=== PATIENT | female | born 1940 | race Caucasian/White ===

== ENCOUNTER → 2021-01-12 | Outpatient (CLI) | payer MEDICARE ==
--- NOTE | 2021-01-12 13:06 | Diagnostic Imaging Report ---
EXAMINATION: Right temporomandibular joint. INDICATION: TMJ pain. TECHNIQUE/COMPARISON: Open and closed mouth views in the lateral projection were obtained. There are no prior studies available for comparison. FINDINGS: There is no fracture or acute bony abnormality evident. The mandibular condyle appears to show normal excursion with opening of the mouth. No other abnormality is identified. IMPRESSION: 1. There is no sign of an acute bony abnormality and the temporomandibular joint seems well maintained. 2. If clinical concern regarding an underlying abnormality of the TMJ persists, then MRI would be recommended. Dictated by: Dictated on workstation # [id number]
== END ==
LOC: RAD 11:15
PROVIDERS: ATTEND Family Medicine
DX: M26.621 Arthralgia of right temporomandibular joint (principal)
CPT/HCPCS: 70328

== ENCOUNTER 2021-03-30 20:18 | Inpatient (IN) | payer MEDICARE ==
[~2021-03-30] VITALS: Ht 167 cm; Wt 87.4 kg
[2021-03-30] MEDS ORDERED: ONDANSETRON 4 MG (ZOFRAN) ORAL DISSOLVE TAB ONE (20:41)
[2021-03-30 20:43] LABS: BILIRUBIN,URINE NEGATIVE (NEGATIVE); CLARITY,URINE CLOUDY; COLOR,URINE YELLOW; GLUCOSE, URINE (UA) TRACE (NEGATIVE); KETONES,URINE NEGATIVE (NEGATIVE); LEUKOCYTE ESTERASE ,URINE 3+ (NEGATIVE); NITRITE,URINE POSITIVE (NEGATIVE); PROTEIN,URINE 2+ (NEGATIVE)
[2021-03-30 20:45] LABS: BACTERIA,URINE MODERATE /HPF; WBC,URINE TNTC /HPF
[2021-03-30] MEDS ORDERED: GLIM2TAB4 PO (20:50)
[2021-03-30] MEDS ORDERED: CYCL10TA9 PO (20:50)
[2021-03-30] MEDS ORDERED: LEVO50TA6 PO (20:50)
[2021-03-30] MEDS ORDERED: HYDR25TA4 PO (20:50)
[2021-03-30] MEDS ORDERED: OMEP20CA18 PO (20:50)
[2021-03-30] MEDS ORDERED: SIMV20TA26 PO (20:50)
[2021-03-30] MEDS ORDERED: NS IV 1000 ML 1,000 ML IV SCH (21:15)
[2021-03-30] MEDS ORDERED: PIPERACILLIN SODIUM/TAZOBACTAM 4.5 GM in NS (IVPB) 100 ML IV ONE (21:15)
--- NOTE | 2021-03-30 21:31 | ED General ---
General Chief Complaint: - Reproductive Stated Complaint: BACK PAIN/FEVER/COUGH/POSS UTI/CHILLS Nursing Triage Note: c/o lower abdominal pain, pain with urination, lower back pain, persistant cough, fever since monday. Source of Information: Patient Exam Limitations: No Limitations History of Present Illness Date Seen by Provider: Mar 30, 2021 Time Seen by Provider: 20:35 Initial Comments This is 80-year-old woman presents to the emergency room accompanied by her daughter with complaints of nausea, vomiting, lower abdominal pain, increased cough, and fever up to 101 with symptoms starting on Monday, March 28. She is noted to be tachycardic and hypoxic upon assessment with oxygen saturation as low as 89% on room air with good waveform. She reports having had cough chronically since having COVID-19 in July, but the cough has worsened in the last several days. She is actively vomiting on arrival. She reports a history of diverticulitis as well. She reports suprapubic abdominal pain but she is not tender to palpation. She moved here in December to live with her daughter and does not yet have a primary care provider. She believes she has been vaccinated for both COVID-19 and influenza in the last year. Allergies and Home Medications Allergies Coded Allergies: erythromycin base (Verified Allergy, Unknown, 03/30/21) Patient Home Medication List Home Medication List Reviewed: Yes Cyclobenzaprine HCl (Cyclobenzaprine HCl) 10 Mg Tablet, (Reported) Entered as Reported by: PEYMAN PASCAL on 03/30/212049 Last Action: New Order Glimepiride (Glimepiride) 2 Mg Tablet, (Reported) Entered as Reported by: PEYMAN PASCAL on 03/30/212049 Last Action: New Order Hydrochlorothiazide (Hydrochlorothiazide) 25 Mg Tablet, (Reported) Entered as Reported by: PEYMAN PASCAL on 03/30/212049 Last Action: New Order Levothyroxine Sodium (Levothyroxine Sodium) 50 Mcg Tablet, (Reported) Entered as Reported by: PEYMAN PASCAL on 03/30/212049 Last Action: New Order Omeprazole (Omeprazole) 20 Mg Capsule., (Reported) Entered as Reported by: PEYMAN PASCAL on 03/30/212049 Last Action: New Order Simvastatin (Simvastatin) 20 Mg Tablet, (Reported) Entered as Reported by: PEYMAN PASCAL on 03/30/212049 Last Action: New Order Review of Systems Review of Systems Constitutional: see HPI EENTM: no symptoms reported Respiratory: see HPI Cardiovascular: see HPI Gastrointestinal: see HPI Genitourinary: see HPI : No Musculoskeletal: back pain Skin: no symptoms reported Psychiatric/Neurological: No Symptoms Reported Hematologic/Lymphatic: No Symptoms Reported Immunological/Allergic: no symptoms reported Past Lhkdmov-Jndpsj-Tbhzrl Hx Patient Social History Tobacco Use?: No Smoking Status: Former Smoker Use of E-Cig and/or Vaping dev: No Substance use?: No Alcohol Use?: No Pt feels they are or have been: No Past Medical History Surgery/Hospitalization HX: eye, niesha, back, niddm, htn, hypothyoid, gerd, high cholesterol, diverticulosis. Surgeries: Yes Eye Surgery, Gallbladder Respiratory: Yes (COVID-28 July 2020) Cardiac: Yes High Cholesterol, Hypertension Neurological: No : No Reproductive Disorders: No Genitourinary: No Gastrointestinal: Yes Diverticulosis (With history of diverticulitis) Musculoskeletal: No Endocrine: Yes Hypothyroidsim, Diabetes, Non-Insulin dep HEENT: No Cancer: No Psychosocial: No Integumentary: No Physical Exam-Suspected Sepsis Physical Exam Vital Signs Vital Signs - First Documented 03/30/21 03/30/21 20:28 20:55 Temp 37.2 Pulse 120 Resp 20 B/P (MAP) 138/77 (97) Pulse Ox 93 O2 Delivery Room Air O2 Flow Rate 3.00 Capillary Refill : Less Than 3 Seconds Blood Pressure Mean: 97 Height, Weight, BMI Height: '" Weight: lbs. oz. kg; 25.00 BMI Method: General Appearance: WD/WN, Moderate Distress (Vomiting) HEENT: PERRL/EOMI, Normal ENT Inspection, Other (Oropharynx quite dry) Neck: Normal Inspection Respiratory: Lungs Clear, No Accessory Muscle Use, No Respiratory Distress, Decreased Breath Sounds Cardiovascular: No Edema, No Murmur, Normal Peripheral Pulses, Tachycardia Gastrointestinal: Normal Bowel Sounds, Non Tender, Soft; No Distended; Other (Vomiting during assessment) Extremity: Normal Inspection, No Pedal Edema Neurologic/Psychiatric: Alert, Oriented x3, No Motor/Sensory Deficits, Normal Mood/Affect, microbiology manager II-XII Norm as Tested Skin: normal color, warm/dry Focused Exam Lactate Level 03/30/21 21:40: Lactic Acid Level 1.35 Lactic Acid Level Progress/Results/Core Measures Suspected Sepsis SIRS Temperature: Pulse: 120 Respiratory Rate: 20 Laboratory Tests 03/30/21 21:40: White Blood Count 9.1 03/31/21 04:40: White Blood Count 7.7 Blood Pressure 138 /77 Mean: 97 03/30/21 21:40: Lactic Acid Level 1.35 Laboratory Tests 03/30/21 21:40: Creatinine 1.34H, INR Comment 1.0, Platelet Count 146, Total Bilirubin 1.4H 03/31/21 04:40: Creatinine 1.31H, Platelet Count 108L Results/Orders Lab Results Laboratory Tests Test 03/30/21 20:36 03/30/21 20:54 03/30/21 21:40 03/31/21 04:40 Range/Units Urine Color YELLOW Urine Clarity CLOUDY Urine pH 6.0 5-9 Urine Specific Blandon 1.015 L 1.016-1.022 Urine Protein 2+ H NEGATIVE Urine Glucose (UA) TRACE H NEGATIVE Urine Ketones NEGATIVE NEGATIVE Urine Nitrite POSITIVE H NEGATIVE Urine Bilirubin NEGATIVE NEGATIVE Urine Urobilinogen 1.0 < = 1.0 MG/DL Urine Leukocyte Esterase 3+ H NEGATIVE Urine RBC (Auto) 3+ H NEGATIVE Urine RBC 5-10 H /HPF Urine WBC TNTC H /HPF Urine Crystals NONE /LPF Urine Bacteria MODERATE H /HPF Urine Casts NONE /LPF Urine Mucus LARGE H /LPF Urine Culture Indicated YES Influenza Type A (RT-PCR) Not Detected Not Detecte Influenza Type B (RT-PCR) Not Detected Not Detecte SARS-CoV-2 RNA (RT-PCR) Not Detected Not Detecte White Blood Count 9.1 7.7 4.3-11.0 10^3/uL Red Blood Count 4.50 3.81 3.80-5.11 10^6/uL Hemoglobin 13.5 11.4 L 11.5-16.0 g/dL Hematocrit 41 36 35-52 % Mean Corpuscular Volume 91 93 80-99 fL Mean Corpuscular Hemoglobin 30 30 25-34 pg Mean Corpuscular Hemoglobin Concent 33 32 32-36 g/dL Red Cell Distribution Width 13.8 14.0 10.0-14.5 % Platelet Count 146 108 L 130-400 10^3/uL Mean Platelet Volume 10.5 10.4 9.0-12.2 fL Immature Granulocyte % (Auto) 0 0 % Neutrophils (%) (Auto) 85 H 83 H 42-75 % Lymphocytes (%) (Auto) 6 L 8 L 12-44 % Monocytes (%) (Auto) 8 8 0-12 % Eosinophils (%) (Auto) 0 0 0-10 % Basophils (%) (Auto) 0 0 0-10 % Neutrophils # (Auto) 7.8 6.4 1.8-7.8 10^3/uL Lymphocytes # (Auto) 0.5 L 0.6 L 1.0-4.0 10^3/uL Monocytes # (Auto) 0.8 0.6 0.0-1.0 10^3/uL Eosinophils # (Auto) 0.0 0.0 0.0-0.3 10^3/uL Basophils # (Auto) 0.0 0.0 0.0-0.1 10^3/uL Immature Granulocyte # (Auto) 0.0 0.0 0.0-0.1 10^3/uL Neutrophils % (Manual) 85 % Lymphocytes % (Manual) 7 % Monocytes % (Manual) 8 % Blood Morphology Comment NORMAL Prothrombin Time 13.7 12.2-14.7 SEC INR Comment 1.0 0.8-1.4 Activated Partial Thromboplast Time 31 24-35 SEC D-Dimer 0.81 H 0.00-0.49 UG/ML Sodium Level 138 135 135-145 MMOL/L Potassium Level 3.2 L 3.9 3.6-5.0 MMOL/L Chloride Level 97 L 100 98-107 MMOL/L Carbon Dioxide Level 27 27 21-32 MMOL/L Anion Gap 14 8 5-14 MMOL/L Blood Urea Nitrogen 36 H 30 H 7-18 MG/DL Creatinine 1.34 H 1.31 H 0.60-1.30 MG/DL Estimat Glomerular Filtration Rate 38 39 BUN/Creatinine Ratio 27 23 Glucose Level 114 H 204 H 70-105 MG/DL Lactic Acid Level 1.35 0.50-2.00 MMOL/L Calcium Level 10.2 H 9.0 8.5-10.1 MG/DL Corrected Calcium 10.2 H 8.5-10.1 MG/DL Total Bilirubin 1.4 H 0.1-1.0 MG/DL Aspartate Amino Transf (AST/SGOT) 60 H 5-34 U/L Alanine Aminotransferase (ALT/SGPT) 51 0-55 U/L Alkaline Phosphatase 92 40-136 U/L C-Reactive Protein High Sensitivity 17.00 H 18.98 H 0.00-0.50 MG/DL Total Protein 7.6 6.4-8.2 GM/DL Albumin 4.0 3.2-4.5 GM/DL Procalcitonin 0.79 H 4.65 H <0.10 NG/ML Thyroid Stimulating Hormone (TSH) 2.43 0.35-4.94 UIU/ML Free Thyroxine 0.95 0.70-1.48 NG/DL Percent Immature Platelet Fraction 3.2 0.0-7.6 % Test 03/31/21 06:22 Range/Units Glucometer 123 H 70-110 MG/DL My Orders Orders - CHARLES COHEN MD Ua Culture If Indicated (03/30/21 20:35) Ondansetron Oral Dissolve Tab (Zofran (03/30/21 20:41) Urine Culture (03/30/21 20:36) Cbc With Automated Diff (03/30/21 21:10) Comprehensive Metabolic Panel (03/30/21 21:10) Blood Culture (03/30/21 21:10) Sputum Culture (03/30/21 21:10) Protime With Inr (03/30/21 21:10) Partial Thromboplastin Time (03/30/21 21:10) Chest 1 View, Ap/Pa Only (03/30/21 21:10) Ed Iv/Invasive Line Start (03/30/21 21:10) Ed Iv/Invasive Line Start (03/30/21 21:10) Vital Signs Adult Sepsis Patie Q15M (03/30/21 21:10) O2 (03/30/21 21:10) Remove Rings In Anticipation O (03/30/21 21:10) Lactic Acid Analyzer (03/30/21 21:10) Ns Iv 1000 Ml (Sodium Chloride 0.9%) (03/30/21 21:15) Piperacillin Sodium/Tazobactam (Zosyn Vi (03/30/21 21:15) Covid 19 Inhouse Test (03/30/21 21:10) Influenza A And B By Pcr (03/30/21 21:10) Hs C Reactive Protein (03/30/21 21:35) Procalcitonin (Pct) (03/30/21 21:35) Thyroid Stimulating Hormone (03/30/21 21:35) Free T4 (Free Thyroxine) (03/30/21 21:35) Manual Differential (03/30/21 21:40) D5 1/2 Ns W/Kcl 40 Meq/L (Dextrose 5%/0. (03/30/21 22:30) D5 1/2 Ns W/Kcl 40 Meq/L (Dextrose 5%/0. (03/30/21 22:16) Fibrin Degradation Products (03/30/21 21:40) Enoxaparin Injection (Lovenox Injection) (03/30/21 22:45) Medications Given in ED Current Medications Medications Dose Ordered Sig/Becca Route Start Time Stop Time Status Last Admin Dose Admin Ondansetron HCl 4 mg STK-MED ONCE .ROUTE 03/30/21 20:41 03/30/21 20:44 DC 03/30/21 20:42 4 MG Piperacillin Sod/ Tazobactam Sod 4.5 gm/Sodium Chloride 100 ml @ 200 mls/hr ONCE ONCE IV 03/30/21 21:15 03/30/21 21:44 DC 03/30/21 21:46 200 MLS/HR Potassium Chloride/Dextrose/ Sod Cl 1,000 ml @ 150 mls/hr Q6H40M ONCE IV 03/30/21 22:30 03/31/21 00:16 DC 03/30/21 22:40 150 MLS/HR Vital Signs/I&O 03/30/21 03/30/21 03/30/21 03/30/21 20:28 20:55 23:07 23:33 Temp 37.2 36.9 37.0 Pulse 120 108 101 Resp 20 18 20 B/P (MAP) 138/77 (97) 112/68 122/57 (78) Pulse Ox 93 98 94 O2 Delivery Room Air Nasal Cannula Nasal Cannula Nasal Cannula O2 Flow Rate 3.00 3.00 3.00 03/31/21 04:05 Temp 37.0 Pulse 89 Resp 25 B/P (MAP) 101/52 (68) Pulse Ox 97 O2 Delivery Nasal Cannula O2 Flow Rate 3.00 03/31/21 00:00 Intake Total 100 ml Balance 100 ml Capillary Refill : Less Than 3 Seconds Blood Pressure Mean: 97 Progress Note #1: Time: 21:31 Progress Note Patient was treated with sublingual Zofran during assessment. Septic work-up is underway including influenza and Covid swabs. Urinary tract infection was identified on urinalysis. Work-up is still pending but antibiotic therapy is being initiated with Zosyn at this time. Hypoxia was noted with oxygen saturation as low as 89% on room air with a good waveform. She responded well to nasal cannula at 3 L/min. Progress Note #2: Time: 22:41 Progress Note UTI was the only identified source of infection. We will continue treating with Zosyn for now. No reason for her persistent hypoxia was identified. Therefore D-dimer was added to the work-up and was mildly elevated. GFR will not allow for CT angiogram at this time. We will therefore give her a single dose of Lovenox tonight and allow the hospitalist team to reassess in the morning. Patient denies any contraindications to Lovenox use. I discussed CODE STATUS with the patient and her daughter. She requests to be full code at this time. Potassium will be replaced in the IV fluids. Patient states she would like a referral to a primary care provider upon discharge. Diagnostic Imaging Diagonstic Imaging: Xray Plain Films/CT/US/NM/MRI: chest Comments Chest x-ray viewed by me and report reviewed. See report below: NAME: JAQUELINE LOPEZ [facility] REC#: [id number] PT STATUS: REG ER : 1940 PHYSICIAN: CHARLES COHEN MD ADMIT DATE: 03/30/21/ER Signed Date of Exam:03/30/21 CHEST 1 VIEW, AP/PA ONLY INDICATION: Abdominal pain with cough and fever AP view of the chest is obtained. There is no previous study for comparison. There is elevation of the right hemidiaphragm. Heart size and pulmonary vascularity are within normal limits. There is no pneumothorax or consolidation. There are surgical findings in the lower cervical spine with degenerative findings seen in both acromioclavicular joints. IMPRESSION: Elevated right hemidiaphragm without evidence of acute abnormality. If older studies are available, comparison would be useful to document stability. Dictated by: Dictated on workstation # [id number] Dict: 03/30/212135 Trans: 03/30/212153 [facility] [id number] Interpreted by: JEAN PEÑA MD Electronically signed by: JEAN PEÑA MD 03/30/212153 Departure Communication (Admissions) Time/Spoke to Admitting Phy: 22:25 Dr. Yost Impression Primary Impression: Sepsis Qualified Codes: A41.9 - Sepsis, unspecified organism Additional Impressions: Hypoxia Urinary tract infection Qualified Codes: N39.0 - Urinary tract infection, site not specified Nausea and vomiting Qualified Codes: R11.2 - Nausea with vomiting, unspecified Elevated d-dimer Disposition: ADMITTED INPATIENT Condition: Improved Admissions Decision to Admit Reason: Admit from ER (General) Decision to Admit/Date: Mar 30, 2021 Time/Decision to Admit Time: 21:10 Departure-Patient Inst. Referrals: NO,LOCAL PHYSICIAN (PCP) Primary Care Physician CHARLES COHEN MD Mar 30, 2021 21:31
--- NOTE | 2021-03-30 21:45 | Diagnostic Imaging Report ---
INDICATION: Abdominal pain with cough and fever AP view of the chest is obtained. There is no previous study for comparison. There is elevation of the right hemidiaphragm. Heart size and pulmonary vascularity are within normal limits. There is no pneumothorax or consolidation. There are surgical findings in the lower cervical spine with degenerative findings seen in both acromioclavicular joints. IMPRESSION: Elevated right hemidiaphragm without evidence of acute abnormality. If older studies are available, comparison would be useful to document stability. Dictated by: Dictated on workstation # [id number]
[2021-03-30 21:55] LABS: BASOPHILS % (AUTO) 0 % (0-10); EOSINOPHILS % (AUTO) 0 % (0-10); HEMATOCRIT 41 % (35-52); HEMOGLOBIN 13.5 g/dL (11.5-16.0); LYMPHOCYTES # (AUTO) 0.5 10^3/uL (1.0-4.0); LYMPHOCYTES % (AUTO) 6 % (12-44); MEAN CORPUSCULAR HEMOGLOBIN 30 pg (25-34); MEAN CORPUSCULAR HGB CONC 33 g/dL (32-36); MEAN CORPUSCULAR VOLUME 91 fL (80-99); MEAN PLATELET VOLUME 10.5 fL (9.0-12.2); MONOCYTES # (AUTO) 0.8 10^3/uL (0.0-1.0); MONOCYTES % (AUTO) 8 % (0-12); NEUTROPHILS # (AUTO) 7.8 10^3/uL (1.8-7.8); NEUTROPHILS % (AUTO) 85 % (42-75); PLATELET COUNT 146 10^3/uL (130-400); WHITE BLOOD COUNT 9.1 10^3/uL (4.3-11.0)
[2021-03-30 22:03] LABS: POTASSIUM 3.2 MMOL/L (3.6-5.0)
[2021-03-30 22:04] LABS: CALCIUM 10.2 MG/DL (8.5-10.1); PROTHROMBIN TIME PATIENT 13.7 SEC (12.2-14.7)
[2021-03-30 22:05] LABS: TOTAL PROTEIN 7.6 GM/DL (6.4-8.2)
[2021-03-30 22:07] LABS: BILIRUBIN,TOTAL 1.4 MG/DL (0.1-1.0)
[2021-03-30 22:09] LABS: CREATININE SERUM 1.34 MG/DL (0.60-1.30)
[2021-03-30] MEDS ORDERED: D5 1/2 NS W/KCL 40 MEQ/L 1,000 ML IV ONE ×2 (22:16→22:30)
[2021-03-30 22:19] LABS: LYMPHOCYTES % (MANUAL) 7 %; MONOCYTES % (MANUAL) 8 %; NEUTROPHILS % (MANUAL) 85 %; RBC MORPH NORMAL
[2021-03-30 22:33] LABS: FIBRIN DEGRADATION PRODUCTS 0.81 UG/ML (0.00-0.49); FREE T4 (FREE THYROXINE) 0.95 NG/DL (0.70-1.48)
[2021-03-30] MEDS ORDERED: ENOXAPARIN 80 MG/0.8 ML (LOVENOX) SYR SC ONE (22:45)
[2021-03-30 23:33] VITALS: BP 122/57
[2021-03-31] VITALS (7 sets, daily range): BP systolic 99–132; BP diastolic 50–65
[2021-03-31] MEDS ORDERED: diphenhydrAMINE 25 MG TAB (BENADRYL) PO PRN (00:15)
[2021-03-31] MEDS ORDERED: ACETAMINOPHEN 650 MG SUPP (TYLENOL) PR PRN (00:15)
[2021-03-31] MEDS ORDERED: FAMOTIDINE 20MG/2ML IV (PEPCID) IV PRN (00:15)
[2021-03-31] MEDS ORDERED: ONDANSETRON 4 MG/2 ML (SDV) Z0FRAN IV PRN (00:15)
[2021-03-31] MEDS: D5 1/2 NS W/KCL 40 MEQ/L 1,000 ML IV SCH ×3 (00:21→07:46)
[2021-03-31 04:47] LABS: BASOPHILS % (AUTO) 0 % (0-10); EOSINOPHILS % (AUTO) 0 % (0-10); HEMATOCRIT 36 % (35-52); MEAN CORPUSCULAR VOLUME 93 fL (80-99); MONOCYTES # (AUTO) 0.6 10^3/uL (0.0-1.0)
[2021-03-31 04:49] LABS: HEMOGLOBIN 11.4 g/dL (11.5-16.0); LYMPHOCYTES # (AUTO) 0.6 10^3/uL (1.0-4.0); LYMPHOCYTES % (AUTO) 8 % (12-44); MEAN CORPUSCULAR HEMOGLOBIN 30 pg (25-34); MEAN CORPUSCULAR HGB CONC 32 g/dL (32-36); MEAN PLATELET VOLUME 10.4 fL (9.0-12.2); MONOCYTES % (AUTO) 8 % (0-12); NEUTROPHILS # (AUTO) 6.4 10^3/uL (1.8-7.8); NEUTROPHILS % (AUTO) 83 % (42-75); PLATELET COUNT 108 10^3/uL (130-400); WHITE BLOOD COUNT 7.7 10^3/uL (4.3-11.0)
[2021-03-31 05:03] LABS: POTASSIUM 3.9 MMOL/L (3.6-5.0)
[2021-03-31 05:08] LABS: CREATININE SERUM 1.31 MG/DL (0.60-1.30)
[2021-03-31] MEDS: inSUlin ASPART (NovoLOG) 1 UNIT/0.01 ML (CHARGE PER UNIT) SC SCH ×4 (06:23→21:22)
[2021-03-31] MEDS: ACETAMINOPHEN 500 MG TAB (TYLENOL) PO PRN ×2 (06:26→12:42)
[2021-03-31] MEDS: PIPERACILLIN/TAZO 4.5 GM/NS 100 ML IV SCH ×6 (07:46→21:54)
[2021-03-31] MEDS: FAMOTIDINE 20 MG (PEPCID) TABLET PO SCH (08:04)
[2021-03-31] MEDS ORDERED: MELA1TAB20 PO (08:10)
[2021-03-31] MEDS ORDERED: ASCO100T6 PO (08:10)
[2021-03-31] MEDS ORDERED: IBUP-2473 PO (10:03)
[2021-03-31] MEDS ORDERED: [UNRECOGNIZED DRUG - CODE] PO (10:03)
[2021-03-31] MEDS ORDERED: MELA5TAB14 PO (10:03)
--- NOTE | 2021-03-31 14:07 | History & Physical-Hospitalist ---
History of Present Illness HPI/Chief Complaint Patient is 80-year-old female with a past medical history of emw-cfnlpbr-kriogksrh diabetes, hypothyroidism, hyperlipidemia, hypertension who presented to the emergency department due to fevers, nausea, vomiting, abdominal pain. She states that her symptoms started roughly 4 days ago when she noticed her urine was cloudy. She then developed suprapubic tenderness. She has had previous symptoms like this with urinary tract infections. She had a temperature of 101 and worsening abdominal pain prompting her to seek evaluation in the emergency department. She was found to meet sepsis criteria due to uri nary tract infection and was started on Zosyn and admitted for further management. This morning she states she is feeling much better and has had no further nausea or vomiting. She is requesting to advance her diet as well. Source: patient Date Seen 03/31/21 Time Seen by a Provider: 08:45 Attending Physician Eduard Yost MD PCP No,Local Physician Referring Physician Date of Admission Mar 30, 2021 at 22:40 Home Medications & Allergies Home Medications Reviewed patient Home Medication Reconciliation performed by pharmacy medication reconciliations industrial machine system technician and/or nursing. Patients Allergies have been reviewed. Allergies Allergies Coded Allergies erythromycin base (Verified Allergy, Unknown, 03/30/21) Past Wlyzrgw-Gbjisj-Vdawag Hx Patient Social History Employed/Student: retired Tobacco Use?: No Tobacco type used: Cigarettes Smoking Status: Former Smoker Smokeless Tobacco Frequency: Never a User Use of E-Cig and/or Vaping dev: No Substance use?: No Alcohol Use?: No Pt feels they are or have been: No Immunizations Up To Date First/Initial COVID19 Vaccinat: JANUARY 2021 Second COVID19 Vaccination Allen: JANUARY 2021 Tetanus Booster (TDap): Unknown Current Status status: No Advance Directives: No Communicates: Verbally Primary Language: Slovak Preferred Spoken Language: Slovak Is interpretation needed?: No Sensory deficits: Vision impairment Implanted or Applied Medical D: None Past Medical History Surgeries: Eye Surgery, Gallbladder High Cholesterol, Hypertension Diverticulosis (With history of diverticulitis) Hypothyroidsim, Diabetes, Non-Insulin dep Family Medical History Reviewed Nursing Family Hx No Pertinent Family Hx daughter alive Review of Systems Constitutional: chills, fever, malaise EENTM: no symptoms reported Respiratory: cough (chronic since COVID) Cardiovascular: No chest pain, No edema, No palpitations Gastrointestinal: abdominal pain; No constipation, No diarrhea; nausea, vomiting Genitourinary: no symptoms reported Musculoskeletal: no symptoms reported Skin: no symptoms reported Psychiatric/Neurological: No Symptoms Reported Physical Exam Physical Exam Vital Signs Vital Signs - First Documented 03/30/21 03/30/21 20:28 20:55 Temp 37.2 Pulse 120 Resp 20 B/P (MAP) 138/77 (97) Pulse Ox 93 O2 Delivery Room Air O2 Flow Rate 3.00 Capillary Refill : Less Than 3 Seconds Height, Weight, BMI Height: '" Weight: lbs. oz. kg; 31.33 BMI Method: General Appearance: No Apparent Distress, WD/WN HEENT: PERRL/EOMI, Moist Mucous Membranes Neck: Normal Inspection, Supple Respiratory: Lungs Clear, No Accessory Muscle Use, No Respiratory Distress Cardiovascular: Regular Rate, Rhythm, No JVD, No Murmur Gastrointestinal: Normal Bowel Sounds, Non Tender, Soft Extremity: Normal Capillary Refill, No Calf Tenderness, No Pedal Edema Neurologic/Psychiatric: Alert, Oriented x3, Normal Mood/Affect Results Results/Procedures Labs Laboratory Tests 03/30/21 21:40 03/31/21 04:40 Patient resulted labs reviewed. Imaging: Reviewed Imaging Report Imaging [facility] [place] [place] NAME: JAQUELINE LOPEZ [facility] REC#: [id number] PT STATUS: REG ER : 1940 PHYSICIAN: CHARLES COHEN MD ADMIT DATE: 03/30/21/ER Signed Date of Exam:03/30/21 CHEST 1 VIEW, AP/PA ONLY INDICATION: Abdominal pain with cough and fever AP view of the chest is obtained. There is no previous study for comparison. There is elevation of the right hemidiaphragm. Heart size and pulmonary vascularity are within normal limits. There is no pneumothorax or consolidation. There are surgical findings in the lower cervical spine with degenerative findings seen in both acromioclavicular joints. IMPRESSION: Elevated right hemidiaphragm without evidence of acute abnormality. If older studies are available, comparison would be useful to document stability. Dictated by: Dictated on workstation # [id number] Dict: 03/30/212135 Trans: 03/30/212153 [facility] [id number] Interpreted by: JEAN PEÑA MD Electronically signed by: JEAN PEÑA MD 03/30/212153 Assessment/Plan Admission Diagnosis Sepsis Admission Status: Inpatient Order (span 2 midnights) Reason for Inpatient Admission: see below Assessment and Plan Sepsis due to UTI Continue IV abx await cultures/sensitivities though urine and blood both growing GNR HR improved and now afebrile Continue IVF Procal elevated ?CKD Creatinine 1.31, unsure of baseline Trend NIDDMII Continue home meds BS well controlled currently Thrombocytopenia Likely due to gram negative bacteremia Trend HTN Hold HCTZ as BP well controlled to low HLD Continue home meds Hypothyroidism Continue synthroid DVT ppx: Lovenox Diagnosis/Problems Diagnosis/Problems (1) Nausea and vomiting Status: Acute Qualifiers: Vomiting type: unspecified Vomiting Intractability: non-intractable Qualified Codes: R11.2 - Nausea with vomiting, unspecified (2) Sepsis Status: Acute Qualifiers: Sepsis type: sepsis due to unspecified organism Sepsis acute organ dysf unction status: unspecified Qualified Codes: A41.9 - Sepsis, unspecified organism (3) Urinary tract infection Status: Acute Qualifiers: Urinary tract infection type: site unspecified Hematuria presence: without hematuria Qualified Codes: N39.0 - Urinary tract infection, site not specified MP DC MD Mar 31, 2021 14:07
[2021-03-31] MEDS ORDERED: ENOXAPARIN 40 MG/0.4 ML (LOVENOX) SYR SQ SCH (14:15)
[2021-03-31] MEDS ORDERED: MELATONIN 3 MG TABLET PO PRN (14:30)
[2021-03-31] MEDS: ENOXAPARIN 40 MG/0.4 ML (LOVENOX) SYR SQ SCH (15:35)
[2021-03-31] MEDS: HYDROcodone/APAP 5 MG/325 MG (LORTAB) TAB PO PRN ×2 (15:36→21:57)
[2021-03-31] MEDS: diphenhydrAMINE 25 MG TAB (BENADRYL) PO SCH (20:10)
[2021-03-31] MEDS: SIMvastatin 20 MG (ZOCOR) TAB PO SCH (20:10)
[2021-03-31] MEDS: CYCLOBENZAPRINE 10 MG (FLEXERIL) TAB PO SCH (20:10)
[2021-03-31] MEDS: ACETAMINOPHEN 500 MG TAB (TYLENOL) PO SCH (20:11)
[2021-04-01] MEDS: D5 1/2 NS W/KCL 40 MEQ/L 1,000 ML IV SCH ×2 (02:26→05:57)
[2021-04-01 04:00] VITALS: BP 110/68
[2021-04-01] MEDS: LEVOTHYROXINE 50 MCG (LEVOTHROID) TAB PO SCH (05:53)
[2021-04-01] MEDS: GLIMEPIRIDE 2 MG (AMARYL) TAB PO SCH (05:53)
[2021-04-01] MEDS: PIPERACILLIN/TAZO 4.5 GM/NS 100 ML IV SCH ×6 (05:53→22:27)
[2021-04-01] MEDS: HYDROcodone/APAP 5 MG/325 MG (LORTAB) TAB PO PRN ×3 (05:54→17:54)
[2021-04-01 06:12] LABS: HEMATOCRIT 36 % (35-52); HEMOGLOBIN 11.1 g/dL (11.5-16.0); MEAN CORPUSCULAR HEMOGLOBIN 30 pg (25-34); MEAN CORPUSCULAR HGB CONC 31 g/dL (32-36); MEAN CORPUSCULAR VOLUME 95 fL (80-99); MEAN PLATELET VOLUME 11.2 fL (9.0-12.2); PLATELET COUNT 114 10^3/uL (130-400)
[2021-04-01] MEDS: inSUlin ASPART (NovoLOG) 1 UNIT/0.01 ML (CHARGE PER UNIT) SC SCH ×4 (06:23→19:52)
[2021-04-01 06:33] LABS: CREATININE SERUM 1.55 MG/DL (0.60-1.30)
[2021-04-01 07:57] VITALS: BP 93/52
[2021-04-01] MEDS: FAMOTIDINE 20 MG (PEPCID) TABLET PO SCH (08:56)
[2021-04-01] MEDS: PANTOPRAZOLE 20 MG TABLET (PROTONIX) PO SCH (08:57)
--- NOTE | 2021-04-01 10:18 | Physical Therapy Evaluation ---
PT Evaluation-General Medical Diagnosis Admission Date Mar 30, 2021 at 22:40 Medical Diagnosis: sepsis/UTI/hypokalemia Onset Date: Mar 30, 2021 Therapy Diagnosis Therapy Diagnosis: debility/weakness Precautions Precautions/Isolations: Standard Precautions Referral Physician: Pramod Reason for Referral: Evaluation/Treatment Medical History Pertinent Medical History: DM, HTN, Hypothroidism Additional Medical History Covid 07/2020 Current History ER with N&V, fever, lower abdominal pain Reviewed History: Yes Social History Home: Single Level Current Living Status: Other Family Prior Prior Level of Function SCALE: Activities may be completed with or without assistive devices. 9-Tbqnucpegk-vvipivc completes the activity by him/herself with no assistance from a helper. 5-Set-up or Clean-up Assistance-helper sets up or cleans up; patient completes activity. [place] assists only prior to or following the activity. 4-Supervision or Touching Assistance-helper provides verbal cues and/or to uching/steadying and/or contact guard assistance as patient completes activity. Assistance may be provided throughout the activity or intermittently. 3-Partial/Moderate Assistance-helper does LESS THAN HALF the effort. [place] lifts, holds or supports trunk or limbs, but provides less than half the effort. 2-Substantial/Maximal Assistance-helper does MORE THAN HALF the effort. [place] lifts or holds trunk or limbs and provides more than half the effort. 5-Ovaucbgoy-skznub does ALL the effort. Patient does none of the effort to complete the activity. Or, the assistance of 2 or more helpers is required for the patient to complete the activity. If activity was not attempted, code reason: 7-Patient Refused. 9-Not Applicable-not attempted and the patient did not perform the activity before the current illness, exacerbation or injury. 10-Not Attempted due to Environmental Limitations-(lack of equipment, weather restraints, etc.). 88-Not Attempted due to Medical Conditions or Safety Concerns. Bed Mobility: 6 Transfers (B,C,W/C): 6 Gait: 6 Indoor Mobility (Ambulation): Independent Prior Devices Use: None PT Evaluation-Current Subjective Patient agrees to PT. She reports she hopes to go home today. Objective Patient Orientation: Normal For Age Attachments: IV ROM/Strength ROM Lower Extremities bilateral LE WFL Strength Lower Extremities 4/5 grossly bilateral LE Integumentary/Posture Bowel Incontinence: No Bladder Incontinence: No Posture WFL Neuromuscular (Tone, Coordination, Reflexes) grossly intact Sensory Vision: Wears Glasses Hearing: Functional Transfers Lying to Sitting/Side of Bed(Q: 6 Sit to Stand (QC): 6 Chair/Igx-hi-Ebtuh Xfer(QC): 6 Gait Does the Patient Walk?: Yes Mode of Locomotion: Walk Anticipated Mode of Locomotion: Walk Walk 10 feet (QC): 6 Walk 50 ft with 2 Turns(QC): 6 Walk 150 ft (QC): 6 Distance: 500' Gait Assistive Device: None Comments/Gait Description safe and functional with no deviation Balance Sitting Static: Normal Sitting Dynamic: Normal Standing Static: Normal Standing Dynamic: Normal Assessment/Needs 80 y.o. female, is currently at independent [facility] with all gross motor skills and does not require skilled therapy intervention. Rehab Potential: Fair PT Plan Treatment/Plan Treatment Plan: Discontinue PT Treatment Duration: Apr 01, 2021 Frequency: 1 time per week Estimated Hrs Per Day: .25 hour per day Patient and/or Family Agrees t: Yes Discharge Recommendations Therapy Discharge Recommendati: Home & Family Time/GCodes Time In: 901 Time Out: 912 Total Billed Treatment Time: 11 Total Billed Treatment 1 visit EVLowC 11 min WANDA RANDALL PT Apr 01, 2021 10:18
[2021-04-01 11:03] VITALS: BP 113/66
--- NOTE | 2021-04-01 12:27 | Progress Note - Hospitalist ---
Subjective HPI/CC On Admission Date Seen by Provider: Apr 01, 2021 Time Seen by Provider: 12:24 Patient is 80-year-old female with a past medical history of zwk-ajtkxee-ahjhlraqu diabetes, hypothyroidism, hyperlipidemia, hypertension who presented to the emergency department due to fevers, nausea, vomiting, abdominal pain. She states that her symptoms started roughly 4 days ago when she noticed her urine was cloudy. She then developed suprapubic tenderness. She has had previous symptoms like this with urinary tract infections. She had a temperature of 101 and worsening abdominal pain prompting her to seek evaluation in the emergency department. She was found to meet sepsis criteria due to urinary tract infection and was started on Zosyn and admitted for further management. This morning she states she is feeling much better and has had no further nausea or vomiting. She is requesting to advance her diet as well. Subjective/Events-last exam Pt reports some pain in her back today. Has many questions about her labs and vitals. Reports an aide told her her sats were 80%. Reviewed chart with her and no documentation of this and she was never placed on oxygen. Informed her we would watch ehr vitals closely. Focused Exam Lactate Level 03/30/21 21:40: Lactic Acid Level 1.35 Objective Exam Vital Signs Vital Signs Date Time Temp Pulse Resp B/P (MAP) Pulse Ox O2 Delivery O2 Flow Rate FiO2 04/01/21 11:03 37.4 83 18 113/66 (82) 93 Room Air 03/31/21 08:05 1.00 Capillary Refill : Less Than 3 Seconds General Appearance: No Apparent Distress, WD/WN, Anxious Respiratory: Lungs Clear, No Respiratory Distress Cardiovascular: Regular Rate, Rhythm, No Murmur Neurologic/Psychiatric: Alert, Oriented x3 Results/Procedures Lab Laboratory Tests 04/01/21 05:50 Patient resulted labs reviewed. Imaging: Reviewed Imaging Report Assessment/Plan Assessment and Plan Assess & Plan/Chief Complaint Sepsis due to UTI Continue Zosyn E coli in urine, Blood culture with GNR Await sensitivities Is improving per lab/vitals though patient feels worse today Will monitor again overnight and see if she improves ?CKD Creatinine 1.5, unsure of baseline Up a little bit today Trend NIDDMII Continue home meds BS well controlled currently Thrombocytopenia- stable Likely due to gram negative bacteremia Trend HTN Hold HCTZ as BP well controlled to low HLD Continue home meds Hypothyroidism Continue synthroid DVT ppx: Lovenox Diagnosis/Problems Diagnosis/Problems (1) Nausea and vomiting Status: Acute Qualifiers: Vomiting type: unspecified Vomiting Intractability: non-intractable Qualified Codes: R11.2 - Nausea with vomiting, unspecified (2) Sepsis Status: Acute Qualifiers: Sepsis type: sepsis due to unspecified organism Sepsis acute organ dysfunction status: unspecified Qualified Codes: A41.9 - Sepsis, unspecified organism (3) Urinary tract infection Status: Acute Qualifiers: Urinary tract infection type: site unspecified Hematuria presence: without hematuria Qualified Codes: N39.0 - Urinary tract infection, site not specified MP DC MD Apr 01, 2021 12:27
[2021-04-01] MEDS: ENOXAPARIN 40 MG/0.4 ML (LOVENOX) SYR SQ SCH (14:13)
[2021-04-01 16:00] VITALS: BP 106/64
[2021-04-01 19:29] VITALS: BP 127/72
[2021-04-01] MEDS: ACETAMINOPHEN 500 MG TAB (TYLENOL) PO SCH (22:26)
[2021-04-01] MEDS: diphenhydrAMINE 25 MG TAB (BENADRYL) PO SCH (22:27)
[2021-04-01] MEDS: SIMvastatin 20 MG (ZOCOR) TAB PO SCH (22:27)
[2021-04-01] MEDS: CYCLOBENZAPRINE 10 MG (FLEXERIL) TAB PO SCH (22:27)
[2021-04-02] VITALS: BP 95/57
[2021-04-02] MEDS: D5 1/2 NS W/KCL 40 MEQ/L 1,000 ML IV SCH (00:30)
[2021-04-02 03:43] VITALS: BP 113/68
[2021-04-02] MEDS: PIPERACILLIN/TAZO 4.5 GM/NS 100 ML IV SCH ×2 (05:33)
[2021-04-02] MEDS: LEVOTHYROXINE 50 MCG (LEVOTHROID) TAB PO SCH (06:03)
[2021-04-02] MEDS: GLIMEPIRIDE 2 MG (AMARYL) TAB PO SCH (06:04)
[2021-04-02] MEDS: inSUlin ASPART (NovoLOG) 1 UNIT/0.01 ML (CHARGE PER UNIT) SC SCH ×2 (06:19→10:24)
[2021-04-02] MEDS: HYDROcodone/APAP 5 MG/325 MG (LORTAB) TAB PO PRN (06:19)
[2021-04-02 07:43] VITALS: BP 122/57
[2021-04-02 07:56] LABS: BASOPHILS % (AUTO) 0 % (0-10); EOSINOPHILS # (AUTO) 0.1 10^3/uL (0.0-0.3); EOSINOPHILS % (AUTO) 3 % (0-10); HEMATOCRIT 36 % (35-52); HEMOGLOBIN 11.5 g/dL (11.5-16.0); LYMPHOCYTES # (AUTO) 0.8 10^3/uL (1.0-4.0); LYMPHOCYTES % (AUTO) 14 % (12-44); MEAN CORPUSCULAR HEMOGLOBIN 30 pg (25-34); MEAN CORPUSCULAR HGB CONC 32 g/dL (32-36); MEAN CORPUSCULAR VOLUME 95 fL (80-99); MEAN PLATELET VOLUME 10.4 fL (9.0-12.2); MONOCYTES # (AUTO) 0.7 10^3/uL (0.0-1.0); MONOCYTES % (AUTO) 12 % (0-12); NEUTROPHILS # (AUTO) 3.8 10^3/uL (1.8-7.8); NEUTROPHILS % (AUTO) 70 % (42-75); PLATELET COUNT 132 10^3/uL (130-400); WHITE BLOOD COUNT 5.4 10^3/uL (4.3-11.0)
[2021-04-02 08:17] LABS: POTASSIUM 4.2 MMOL/L (3.6-5.0)
[2021-04-02 08:18] LABS: CALCIUM 9.1 MG/DL (8.5-10.1)
[2021-04-02 08:22] LABS: CREATININE SERUM 1.23 MG/DL (0.60-1.30)
[2021-04-02] MEDS: FAMOTIDINE 20 MG (PEPCID) TABLET PO SCH (09:28)
[2021-04-02] MEDS: PANTOPRAZOLE 20 MG TABLET (PROTONIX) PO SCH (09:28)
[2021-04-02] MEDS ORDERED: CEPH500T PO (11:17)
--- NOTE | 2021-04-02 11:19 | Discharge Inst-Simple/Standard ---
Discharge Inst-Standard Patient Instructions/Follow Up Plan of Care/Instructions/FU: Please continue to take your medications as written. Please follow up with your primary care doctor to follow up this hospital stay. Activity as Tolerated: Yes Discharge Diet: No Restrictions Return to The Hospital For: Chest pain, shortness of breath, fever, weakness, confusion, abdominal pain, nausea, vomiting, if you feel you are getting worse. MP DC MD Apr 02, 2021 11:19
--- NOTE | 2021-04-02 11:24 | Discharge Summary ---
Diagnosis/Chief Complaint Date of Admission Mar 30, 2021 at 22:40 Date of Discharge Discharge Date: Apr 02, 2021 Admission Diagnosis Sepsis Primary Care No,Local Physician Discharge Diagnosis (1) Nausea and vomiting Status: Acute (2) Sepsis Status: Acute (3) Urinary tract infection Status: Acute Discharge Summary Discharge Physical Exam Allergies: Coded Allergies: erythromycin base (Verified Allergy, Unknown, 03/30/21) Vitals & I&Os Vital Signs Date Time Temp Pulse Resp B/P (MAP) Pulse Ox O2 Delivery O2 Flow Rate FiO2 04/02/21 11:44 36.5 77 20 128/62 (84) 96 Room Air 03/31/21 08:05 1.00 General Appearance: No Apparent Distress, WD/WN Respiratory: Lungs Clear, No Respiratory Distress Cardiovascular: Regular Rate, Rhythm, No Murmur Gastrointestinal: Normal Bowel Sounds, Soft Neurologic/Psychiatric: Alert, Oriented x3 Hospital Course Patient was admitted to the hospital due to sepsis from pyelonephritis and E. coli bacteremia. She was treated with IV Zosyn and did well. She was able to be transitioned to oral antibiotics for discharge based off of sensitivities. She does not currently have a primary care doctor and a list was provided to her to establish care with someone in town. She was discharged home in stable and improved condition. Labs (last 24 hrs) Laboratory Tests 04/01/21 14:18: Glucometer 94 04/01/21 19:46: Glucometer 98 04/02/21 06:11: Glucometer 64L 04/02/21 07:43: White Blood Count 5.4, Red Blood Count 3.83, Hemoglobin 11.5, Hematocrit 36, Mean Corpuscular Volume 95, Mean Corpuscular Hemoglobin 30, Mean Corpuscular Hemoglobin Concent 32, Red Cell Distribution Width 14.0, Platelet Count 132, Mean Platelet Volume 10.4, Immature Granulocyte % (Auto) 0, Neutrophils (%) (Auto) 70, Lymphocytes (%) (Auto) 14, Monocytes (%) (Auto) 12, Eosinophils (%) (Auto) 3, Basophils (%) (Auto) 0, Neutrophils # (Auto) 3.8, Lymphocytes # (Auto) 0.8L, Monocytes # (Auto) 0.7, Eosinophils # (Auto) 0.1, Basophils # (Auto) 0.0, Immature Granulocyte # (Auto) 0.0, Sodium Level 139, Potassium Level 4.2, Chloride Level 106, Carbon Dioxide Level 24, Anion Gap 9, Blood Urea Nitrogen 18, Creatinine 1.23, Estimat Glomerular Filtration Rate 42, BUN/Creatinine Ratio 15, Glucose Level 133H, Calcium Level 9.1 04/02/21 09:18: Glucometer 140H Microbiology 03/30/21 Blood Culture - Final, Complete Escherichia coli 03/30/21 Urine Culture - Final, Complete Escherichia coli Patient resulted labs reviewed. Pending Labs Laboratory Tests 04/02/21 06:11: Glucometer 64 04/02/21 07:43: White Blood Count 5.4, Red Blood Count 3.83, Hemoglobin 11.5, Hematocrit 36, Mean Corpuscular Volume 95, Mean Corpuscular Hemoglobin 30, Mean Corpuscular Hemoglobin Concent 32, Red Cell Distribution Width 14.0, Platelet Count 132, Mean Platelet Volume 10.4, Immature Granulocyte % (Auto) 0, Neutrophils (%) (Auto) 70, Lymphocytes (%) (Auto) 14, Monocytes (%) (Auto) 12, Eosinophils (%) ( Auto) 3, Basophils (%) (Auto) 0, Neutrophils # (Auto) 3.8, Lymphocytes # (Auto) 0.8, Monocytes # (Auto) 0.7, Eosinophils # (Auto) 0.1, Basophils # (Auto) 0.0, Immature Granulocyte # (Auto) 0.0, Sodium Level 139, Potassium Level 4.2, Chloride Level 106, Carbon Dioxide Level 24, Anion Gap 9, Blood Urea Nitrogen 18, Creatinine 1.23, Estimat Glomerular Filtration Rate 42, BUN/Creatinine Ratio 15, Glucose Level 133, Calcium Level 9.1 04/02/21 09:18: Glucometer 140 Imaging: Reviewed Imaging Report Discussion & Recommendations Discharge Planning: >30 minutes discharge planning Discharge Home Medications: Active Scripts Active HYDROcodone/APAP 5 MG/325 MG TAB (Acetaminophen/Hydrocodone Bitart) 1 Tab Tab 1 Ea PO Q6HR PRN Cephalexin 500 Mg Tablet 500 Mg PO BID Reported Pain Relief Pm Caplet (Acetaminophen/Diphenhydramine) 1 Each Tablet 2 Each PO HS Ibuprofen 200 Mg Tablet 400 Mg PO Q8H PRN Melatonin 5 Mg Tablet 5-10 Mg PO HS PRN Vitamin C (Ascorbic Acid) 100 Mg Tablet 100 Mg PO DAILY Simvastatin 20 Mg Tablet 20 Mg PO HS Levothyroxine Sodium 50 Mcg Tablet 50 Mcg PO DAILY Omeprazole 20 Mg Capsule.dr 20 Mg PO DAILY Hydrochlorothiazide 25 Mg Tablet 25 Mg PO DAILY Glimepiride 2 Mg Tablet 2 Mg PO DAILY Cyclobenzaprine HCl 10 Mg Tablet 10 Mg PO HS Instructions to patient/family Please see electronic discharge instructions given to patient. Problem Qualifiers (1) Nausea and vomiting: Vomiting type: unspecified Vomiting Intractability: non-intractable Qualified Codes: R11.2 - Nausea with vomiting, unspecified (2) Sepsis: Sepsis type: sepsis due to unspecified organism Sepsis acute organ dysfunction status: unspecified Qualified Codes: A41.9 - Sepsis, unspecified organism (3) Urinary tract infection: Urinary tract infection type: site unspecified Hematuria presence: without hematuria Qualified Codes: N39.0 - Urinary tract infection, site not specified MP DC MD Apr 02, 2021 11:24
[2021-04-02] MEDS ORDERED: ACHD5005 PO (11:35)
[2021-04-02 11:44] VITALS: BP 128/62
[2021-04-02 12:00] VITALS: BP 128/62
== END 2021-04-02 12:00 | disposition home or self-care (01) | DRG 872 ==
LOC: EDUNIT# 20:18 → ER 20:22 → CSD 22:40 → 4TH 03-31 10:32
PROVIDERS: ADMIT Internal Medicine; ATTEND Internal Medicine
DX: A41.51 Sepsis due to Escherichia coli [E. coli] (principal); N12 Tubulo-interstitial nephritis, not specified as acute or chronic; E11.9 Type 2 diabetes mellitus without complications; E03.9 Hypothyroidism, unspecified; E78.5 Hyperlipidemia, unspecified; I10 Essential (primary) hypertension; H54.7 Unspecified visual loss; E78.00 Pure hypercholesterolemia, unspecified; D69.59 Other secondary thrombocytopenia; K21.9 Gastro-esophageal reflux disease without esophagitis; R09.02 Hypoxemia; Z86.16 Personal history of COVID-19; Z79.84 Long term (current) use of oral hypoglycemic drugs; Z79.890 Hormone replacement therapy; Z79.899 Other long term (current) drug therapy; Z20.822 Contact with and (suspected) exposure to COVID-19; Z87.891 Personal history of nicotine dependence; Z88.1 Allergy status to other antibiotic agents
CPT/HCPCS: 36415; 71045; 80048; 80053; 81000; 82947; 83605; 84145; 84439; 84443; 85007; 85025; 85027; 85379; 85610; 85730; 86141; 87040; 87077; 87088; 87186; 87636; 94760; 96361; 96365; 96372; 96375

== ENCOUNTER → 2021-05-24 | Outpatient (CLI) | payer MEDICARE ==
[~2021-05-24] MED LIST: ACHD5005 PO; ASCO100T6 PO; CEPH500T PO; CYCL10TA9 PO; GLIM2TAB4 PO; HYDR25TA4 PO; IBUP-2473 PO; LEVO50TA6 PO; MELA1TAB20 PO; MELA5TAB14 PO; OMEP20CA18 PO; SIMV20TA26 PO; [UNRECOGNIZED DRUG - CODE] PO
--- NOTE | 2021-05-24 13:59 | Diagnostic Imaging Report ---
PROCEDURE: Pelvic comp/transvaginal sonogram. TECHNIQUE: Complete transabdominal and transvaginal pelvic ultrasound was performed. In addition, limited pelvic Doppler was performed. INDICATION: Abdominal distention. Uterus measures 5.4 x 2.9 x 3.9 cm. Endometrium is 3 mm in thickness. There is a calcification in the mid posterior uterus likely a calcified fibroid. Right ovary was not visualized. Left ovary measures 1.3 x 1.3 x 1.47 cm. No adnexal mass is seen. Small amount of free fluid in posterior cul-de-sac. IMPRESSION: Probable calcified uterine fibroid. Nonvisualized right ovary. Left ovary is small and difficult to visualize. No adnexal masses detected. Dictated by: Dictated on workstation # [id number]
--- NOTE | 2021-05-24 14:03 | Diagnostic Imaging Report ---
INDICATION: Dyspnea. COMPARISON: 03/30/2021. FINDINGS: Frontal and lateral views of the chest demonstrate normal heart size and pulmonary vascularity. The lungs are clear. There are no signs of infiltrate, pleural effusions or pneumothoraces. The visualized osseous structures show no acute abnormalities. IMPRESSION: 1. No acute process. No signs of infiltrates, effusions or pneumothoraces. Dictated by: Dictated on workstation # [id number]
== END ==
LOC: RAD 11:30
PROVIDERS: ATTEND Nurse Practitioner Family
DX: Z12.31 Encounter for screening mammogram for malignant neoplasm of breast (principal); R14.0 Abdominal distension (gaseous); R06.00 Dyspnea, unspecified; Z80.49 Family history of malignant neoplasm of other genital organs
CPT/HCPCS: 71046; 76830; 76856; 77063; 77067; 93005

== ENCOUNTER → 2021-06-10 | Outpatient (CLI) | payer MEDICARE ==
[~2021-06-10] VITALS: Ht 167 cm; Wt 84.0 kg
[~2021-06-10] MED LIST changes: +CATHETER FLUSH 10 ML SYR IV PRN; +CYCL10TA25 PO; -CYCL10TA9 PO; +REGADENOSON 0.4 MG/5 ML SYR (LEXISCAN) IV ONE
[2021-06-10 09:07] VITALS: BP 141/79
--- NOTE | 2021-06-10 12:20 | NUCLEAR STRESS TEST ---
REGADENOSON NUCLEAR STRESS Date of procedure: 06/10/2021. Primary care provider: No local physician. Admitting physician: Lei Morrison Jr., MD. INDICATION: Left bundle branch block. BASELINE ELECTROCARDIOGRAM: Sinus rhythm with left bundle branch block. STRESS TEST PROCEDURE: The patient was administered 0.4 mg of intravenous Regadenoson. The resting heart rate was 84 bpm and the peak heart rate was 102 bpm. The resting blood pressure was 143/69 mmHg and the minimum blood pressure was 123/57 mmHg. This represents a normal heart rate and a normal blood pressure response to Regadenoson. The test was stopped due to the protocol. There was no chest discomfort during the test. There were no arrhythmias during the test. The stress electrocardiogram was indeterminate due to the bundle branch block. NUCLEAR PROCEDURE: The patient was administered 10.8 mCi of intravenous technetium 99m Tetrofosmin at rest for the rest images. The patient was subsequently administered 29.3 mCi of intravenous technetium 99m Tetrofosmin at peak stress for the stress images. Following an appropriate wait after each injection, imaging was obtained. The images were subsequently processed and reformatted in the usual views. Gated imaging was obtained. The image quality was adequate with a mild degree of gastrointestinal attenuation artifact. CT attenuation correction was used as a adjunct to standard imaging. Both the corrected and uncorrected images were reviewed for interpretation. NUCLEAR RESULTS: There was a small, moderate intensity, reversible mid to distal anterior and apical defect with a small amount of inducible ischemia. There was normal left ventricular chamber size with an end-diastolic volume of 54 mL and an end-systolic volume of 27 mL. There was no evidence of transient ischemic dilatation. The TID ratio was 0.90. There was mid to distal anterior and apical hypokinesis with a calculated ejection fraction of 51%. IMPRESSION: 1. Normal heart rate and blood pressure response to regadenoson. 2. There was no chest discomfort or arrhythmias during the test. 3. The stress electrocardiogram was indeterminate due to the bundle branch block. 4. There was a small, moderate intensity, reversible mid to distal anterior and apical defect with a small amount of inducible ischemia. 5. There was mid to distal anterior and apical hypokinesis with a calculated ejection fraction of 51%. 6. This is an abnormal result but represents an overall low risk for future cardiac ischemic events. Certain portions of this document may have been dictated utilizing voice recognition technology. Inherent to this technology, typographical and grammatical errors may exist. As much as I am diligent to identify and correct these mistakes, some errors may remain in the document. LEI MORRISON JR, MD Jun 10, 2021 12:20
== END ==
LOC: CARD 07:04
PROVIDERS: ATTEND Internal Medicine Cardiovascular Disease
DX: I08.0 Rheumatic disorders of both mitral and aortic valves (principal); I44.7 Left bundle-branch block, unspecified
CPT/HCPCS: 78452; 93017; 93306; A9502

== ENCOUNTER 2021-11-08 14:34 | Inpatient (IN) | payer MEDICARE ==
[~2021-11-08] VITALS: Ht 162.5 cm; Wt 88.6 kg
[~2021-11-08 14:34] MED LIST changes: -CATHETER FLUSH 10 ML SYR IV PRN; -REGADENOSON 0.4 MG/5 ML SYR (LEXISCAN) IV ONE
[2021-11-08] MEDS ORDERED: CATHETER FLUSH 10 ML SYR IVP PRN (16:00)
[2021-11-08] MEDS ORDERED: PIPERACILLIN SODIUM/TAZOBACTAM 4.5 GM in NS (IVPB) 100 ML IV NR (16:00)
[2021-11-08 16:17] VITALS: BP 113/56
[2021-11-08] MEDS ORDERED: DIATRIZOATE MEGLUM/SODIUM 37% 120 ML (GASTROGRAFIN) PO ONE (16:30)
[2021-11-08 16:54] LABS: BASOPHILS % (AUTO) 0 % (0-10); EOSINOPHILS # (AUTO) 0.2 10^3/uL (0.0-0.3); EOSINOPHILS % (AUTO) 1 % (0-10); HEMATOCRIT 41 % (35-52); LYMPHOCYTES # (AUTO) 1.5 10^3/uL (1.0-4.0); LYMPHOCYTES % (AUTO) 13 % (12-44); MEAN CORPUSCULAR HEMOGLOBIN 30 pg (25-34); MEAN CORPUSCULAR HGB CONC 32 g/dL (32-36); MEAN CORPUSCULAR VOLUME 94 fL (80-99); MONOCYTES # (AUTO) 0.8 10^3/uL (0.0-1.0); MONOCYTES % (AUTO) 8 % (0-12); NEUTROPHILS # (AUTO) 8.5 10^3/uL (1.8-7.8); NEUTROPHILS % (AUTO) 77 % (42-75); PLATELET COUNT 221 10^3/uL (130-400); WHITE BLOOD COUNT 11.1 10^3/uL (4.3-11.0)
[2021-11-08 16:57] LABS: POTASSIUM 3.5 MMOL/L (3.6-5.0)
[2021-11-08 16:58] LABS: CALCIUM 9.6 MG/DL (8.5-10.1)
[2021-11-08 17:00] LABS: TOTAL PROTEIN 7.5 GM/DL (6.4-8.2)
[2021-11-08 17:02] LABS: BILIRUBIN,TOTAL 0.8 MG/DL (0.1-1.0)
[2021-11-08 17:03] LABS: CREATININE SERUM 1.22 MG/DL (0.60-1.30)
[2021-11-08] MEDS: LACTATED RINGERS 1,000 ML IV SCH (17:46)
[2021-11-08] MEDS: ONDANSETRON 4 MG/2 ML (SDV) Z0FRAN IVP PRN ×2 (18:10→22:20)
--- NOTE | 2021-11-08 19:13 | History & Physical-Hospitalist ---
History of Present Illness HPI/Chief Complaint Returns reporting that she is not feeling any better. Her lower abdominal pain is now radiating up into the right quadrant and she also has some pain radiating up into the right shoulder. It is worse with movement. She has had some mild nausea without vomiting. She reports no burning or dysuria like she had with pr evious UTI that was complicated by sepsis that resulted in hospitalization. She has had no diarrhea or constipation is keeping liquids down with very poor appetite. She was started on Augmentin 3 days ago which she has been taking. She has had several temperatures in the 100.4 range denying rigors. She denies constipation or diarrhea.Symptom have been present for roughly 10 days. Date Seen 11/08/21 Time Seen by a Provider: 14:00 Attending Physician Eduard Riley MD PCP No,Local Physician Referring Physician Date of Admission November 08, 2021 at 15:44 Home Medications & Allergies Home Medications Reviewed patient Home Medication Reconciliation performed by pharmacy medication reconciliations energy technician and/or nursing. Patients Allergies have been reviewed. Allergies Allergies Coded Allergies erythromycin base (Verified Allergy, Unknown, 03/30/21) Past Xtyedxp-Oericx-Tkdqss Hx Patient Social History Tobacco Use?: No Pt feels they are or have been: No Immunizations Up To Date First/Initial COVID19 Vaccinat: JANUARY 2021 Second COVID19 Vaccination Allen: JANUARY 2021 Tetanus Booster (TDap): Unknown Current Status Communicates: Verbally Primary Language: [place] Preferred Spoken Language: [place] Is interpretation needed?: No Past Medical History Surgeries: Eye Surgery, Gallbladder High Cholesterol, Hypertension Diverticulosis Hypothyroidsim, Diabetes, Non-Insulin dep Family Medical History No Pertinent Family Hx daughter alive Review of Systems Constitutional: see HPI Physical Exam Physical Exam Vital Signs Vital Signs - First Documented 11/08/21 16:17 Temp 36.7 Pulse 80 Resp 18 B/P (MAP) 113/56 (75) Pulse Ox 100 O2 Delivery Room Air Capillary Refill : Height, Weight, BMI Height: '" Weight: lbs. oz. kg; 33.55 BMI Method: General Appearance: Mild Distress, Obese HEENT: PERRL/EOMI Respiratory: Chest Non Tender, No Accessory Muscle Use, No Respiratory Distress, Crackles (Dry sounding in basses only) Gastrointestinal: No Organomegaly, Soft, Distended (mild), Tenderness (ruq and luq with guarding no rebound) Extremity: Normal Inspection, Normal Range of Motion, Non Tender, No Calf Tenderness, No Pedal Edema Skin: Normal Color, Warm/Dry Results Results/Procedures Labs Laboratory Tests 11/08/21 16:35 Patient resulted labs reviewed. Assessment/Plan Admission Diagnosis Likely intra abdominal infection with SIRS failing out patient antibiotics. Will obtain CT ABD and Pelvis and initiate Zosyn IV. Depending on results may need surgical consultation in am. Admission Status: Inpatient Order (span 2 midnights) Reason for Inpatient Admission: See above EDUARD RILEY MD November 08, 2021 19:13
[2021-11-08] MEDS ORDERED: IOHEXOL 350 MG/ML 100 ML (OMNIPAQUE 350) VIAL IV ONE (19:15)
[2021-11-08] MEDS ORDERED: NS 100 ML (IVPB) BAG IV ONE (19:15)
[2021-11-08] MEDS ORDERED: CATHETER FLUSH 10 ML SYR IV PRN (19:15)
--- NOTE | 2021-11-08 19:24 | Diagnostic Imaging Report ---
PROCEDURE: CT abdomen and pelvis with contrast. TECHNIQUE: Multiple contiguous axial images were obtained through the abdomen and pelvis after administration of intravenous contrast. Auto Exposure Controls were utilized during the CT exam to meet ALARA standards for radiation dose reduction. All CT scans use one or more of the following dose optimizing techniques: automated exposure control, MA and/or KvP adjustment based on patient size and exam type or iterative reconstruction. INDICATION: Abdominal pain and pressure. Question infection. Prior appendectomy and left oophorectomy. EXAMINATION: CT abdomen and pelvis with contrast 11/08/2021 FINDINGS: There is linear atelectasis or scarring in the visualized lung bases. There is evidence of previous cholecystectomy. The spleen and liver unremarkable. Pancreas and adrenal glands unremarkable. Kidneys unremarkable. There is diffuse diverticular disease throughout the descending colon and sigmoid. There is wall thickening of the mid descending colon to the proximal sigmoid colon which could be due to under distention versus colitis. More focal inflammatory change is seen about the diverticular disease along the distal descending colon suggesting a focal diverticulitis. There is no evidence for free air or perforation. There is no abscess formation. There are findings of mild constipation in the distal colon. There is no free air. No free fluid. Appendix is surgically absent per history. There is a small fat-containing umbilical hernia. Atherosclerotic disease is noted. There is no acute osseous abnormality. IMPRESSION: 1. Findings suspicious for acute diverticulitis although an associated colitis of the distal colon not excluded as described above. No evidence for perforation or abscess formation. 2. Incidental findings otherwise noted as discussed above. Dictated by: Dictated on workstation # [id number]
[2021-11-08 20:36] VITALS: BP 126/58
[2021-11-08] MEDS: PIPERACILLIN SODIUM/TAZOBACTAM 4.5 GM in NS (IVPB) 100 ML IV SCH (21:23)
[2021-11-08] MEDS ORDERED: MELATONIN 3 MG TABLET PO SCH (22:00)
[2021-11-08] MEDS: HYDROcodone/APAP 5 MG/325 MG (LORTAB) TAB PO PRN (22:03)
[2021-11-09 00:19] VITALS: BP 110/58
[2021-11-09 04:39] VITALS: BP 107/56
[2021-11-09] MEDS: PIPERACILLIN SODIUM/TAZOBACTAM 4.5 GM in NS (IVPB) 100 ML IV SCH ×3 (05:53→21:33)
[2021-11-09] MEDS: LACTATED RINGERS 1,000 ML IV SCH ×2 (05:54→17:23)
[2021-11-09] MEDS: ONDANSETRON 4 MG/2 ML (SDV) Z0FRAN IVP PRN ×3 (06:31→20:55)
[2021-11-09 08:00] VITALS: BP 152/83
--- NOTE | 2021-11-09 08:02 | Consultation - Surgery ---
History of Present Illness History of Present Illness Patient Consulted On(gabriel/time) 11/09/21 08:01 Date Seen by Provider: November 09, 2021 Time Seen by Provider: 08:01 History of Present Illness Consult requested by Dr. Dc for diverticulitis. Patient is a 81 year old female with lower abdominal pain, dull aching pain. She reports abdominal pain for a long time but recently worsened. She was treated fo r UTI. Pain continued to worsen and [facility]. Today feeling better. She reports 5/10 pain to me in the lower abdomen. It radiates around a little bit but different directions. Has had nausea, no emesis. Is passing flatus and bm. Had ct scan suggestive of sigmoid diverticulitis possible some colitis. Last colonoscopy she believes was couple years ago. Allergies and Home Medications Allergies Coded Allergies: erythromycin base (Verified Allergy, Unknown, 03/30/21) Patient Home Medication List Home Medication List Reviewed: Yes Acetaminophen/Diphenhydramine (Acetaminophen Pm Caplet) 500 Mg-25 Mg Tablet, 2 EACH PO HS, (Reported) Entered as Reported by: KT ROBINS on 11/09/21852 Last Action: Held Amoxicillin/Potassium Clav (Amox Tr-K Clv 875-125 mg Tab) 875 Mg-125 Mg Tablet, 1 EA PO BID, (Reported) Entered as Reported by: KT ROBINS on 11/09/21852 Last Action: Reviewed Ascorbic Acid (Ascorbic Acid) 500 Mg Tablet, 500 MG PO DAILY, (Reported) Entered as Reported by: KT ROBINS on 11/09/21852 Last Action: Held Cyclobenzaprine HCl (Cyclobenzaprine HCl) 10 Mg Tablet, 10 MG PO HS, (Reported) Entered as Reported by: PEYMAN PASCAL on 03/30/212049 Last Action: Continued Glimepiride (Glimepiride) 2 Mg Tablet, 2 MG PO DAILY, (Reported) Entered as Reported by: PEYMAN PASCAL on 03/30/212049 Last Action: Held Hydrochlorothiazide (Hydrochlorothiazide) 25 Mg Tablet, 25 MG PO DAILY, (Reported) Entered as Reported by: PEYMAN PASCAL on 03/30/212049 Last Action: Continued Hydrocodone/Acetaminophen (Hydrocodone-Acetamin 5-325 mg) 5 Mg-325 Mg Tablet, 1 EA PO Q4H PRN for PAIN-MODERATE (5-7), (Reported) Entered as Reported by: KT ROBINS on 11/09/21852 Last Action: Held Levothyroxine Sodium (Levothyroxine Sodium) 50 Mcg Tablet, 50 MCG PO DAILY, (R eported) Entered as Reported by: PEYMAN PASCAL on 03/30/212049 Last Action: Continued Melatonin (Melatonin) 5 Mg Tablet, 10 MG PO HS PRN for SLEEP, (Reported) Entered as Reported by: KT ROBINS on 03/31/211002 Last Action: Converted Omeprazole (Omeprazole) 20 Mg Capsule.dr, 20 MG PO DAILY, (Reported) Entered as Reported by: PEYMAN PASCAL on 03/30/212049 Last Action: Continued Simvastatin (Simvastatin) 20 Mg Tablet, 20 MG PO HS, (Reported) Entered as Reported by: PEYMAN PASCAL on 03/30/212049 Last Action: Continued [Hylands Leg Cramp Pm] , 3 EA SL HS, (Reported) Entered as Reported by: KT ROBINS on 11/09/21852 Last Action: Held Discontinued Medications Ascorbic Acid (Vitamin C) 100 Mg Tablet, 100 MG PO DAILY, (Reported) Discontinued Reason: Prescription changed Entered as Reported by: TENISHA OLMEDO on 03/31/21809 Cephalexin (Cephalexin) 500 Mg Tablet, 500 MG PO BID Discontinued Reason: No Longer Taking Prescribed by: MP DC on 04/02/21 1117 Last Action: Discontinued Hydrocodone Bit/Acetaminophen (HYDROcodone/APAP 5 MG/325 MG TAB) 1 Tab Tab, 1 EA PO Q6HR PRN for PAIN-MODERATE (5-7) Discontinued Reason: Duplicate Order Prescribed by: MP DC on 04/02/21 1135 Last Action: Discontinued Ibuprofen (Ibuprofen) 200 Mg Tablet, 400 MG PO Q8H PRN for PAIN-MILD (1-4), (Reported) Discontinued Reason: No Longer Taking Entered as Reported by: KT ROBINS on 03/31/211002 Last Action: Discontinued Past Rwrppua-Uzwetj-[id number] Hx Patient Social History Recent Hopitalizations: Yes Alcohol Use?: No Have you traveled recently?: No Surgeries History of Surgeries: Yes Surgeries: Appendectomy, Eye Surgery, Gallbladder Respiratory History of Respiratory Disorde: Yes (COVID-28 July 2020) Cardiovascular History of Cardiac Disorders: Yes Cardiac Disorders: High Cholesterol, Hypertension Neurological History of Neurological Disord: No Reproductive System Hx Reproductive Disorders: No Genitourinary History of Genitourinary Disor: No Gastrointestinal History of Gastrointestinal Di: Yes Gastrointestinal Disorders: Diverticulosis Musculoskeletal History of Musculoskeletal Dis: No Endocrine History of Endocrine Disorders: Yes Endocrine Disorders: Hypothyroidsim, Diabetes, Non-Insulin dep HEENT History of HEENT Disorders: No Cancer History of Cancer: No Psychosocial History of Psychiatric Problem: No Integumentary History of Skin or Integumenta: No Family Medical History Significant Family History: No Pertinent Family Hx Review of Systems-General Constitutional: No chills, No diaphoresis EENTM: No blurred vision, No double vision Respiratory: No cough, No dyspnea on exertion Cardiovascular: No chest pain, No palpitations Gastrointestinal: abdominal pain, nausea; No vomiting Genitourinary: No decreased output, No discharge Musculoskeletal: No back pain, No joint pain Skin: No change in color, No change in hair/nails Psychiatric/Neurological: Denies Anxiety, Denies Depressed, Denies Emotional Problems All Other Systems Reviewed Negative Unless Noted: Yes (Negative excepted noted.) Physical Exam-General Problems Physical Exam Vital Signs Vital Signs - First Documented 11/08/21 11/09/21 16:17 00:19 Temp 36.7 Pulse 80 Resp 18 B/P (MAP) 113/56 (75) Pulse Ox 100 O2 Delivery Room Air O2 Flow Rate 2.00 Capillary Refill : General Appearance: WD/WN, no apparent distress HEENT: PERRL/EOMI, normal ENT inspection Neck: non-tender, supple Respiratory: chest non-tender, no respiratory distress, no accessory muscle use Cardiovascular: regular rate, rhythm, no JVD Gastrointestinal: soft; No guarding, No rebound; tenderness (lower abdomen) Rectal: deferred Back: no CVA tenderness, no vertebral tenderness Extremities: non-tender, no pedal edema, no calf tenderness Neurologic/Psychiatric: alert, normal mood/affect, oriented x 3 Skin: warm/dry Lymphatic: no adenopathy Data Review Labs Laboratory Tests 11/08/21 16:35: White Blood Count 11.1H, Red Blood Count 4.35, Hemoglobin 13.0, Hematocrit 41, Mean Corpuscular Volume 94, Mean Corpuscular Hemoglobin 30, Mean Corpuscular Hemoglobin Concent 32, Red Cell Distribution Width 14.0, Platelet Count 221, Mean Platelet Volume 10.0, Immature Granulocyte % (Auto) 1, Neutrophils (%) (Auto) 77H, Lymphocytes (%) (Auto) 13, Monocytes (%) (Auto) 8, Eosinophils (%) (Auto) 1, Basophils (%) (Auto) 0, Neutrophils # (Auto) 8.5H, Lymphocytes # (Auto) 1.5, Monocytes # (Auto) 0.8, Eosinophils # (Auto) 0.2, Basophils # (Auto) 0.0, Immature Granulocyte # (Auto) 0.1, Sodium Level 137, Potassium Level 3.5L, Chloride Level 94L, Carbon Dioxide Level 27, Anion Gap 16H, Blood Urea Nitrogen 30H, Creatinine 1.22, Estimat Glomerular Filtration Rate 45, BUN/Creatinine Rat io 25, Glucose Level 123H, Calcium Level 9.6, Corrected Calcium 9.6, Total Bilirubin 0.8, Aspartate Amino Transf (AST/SGOT) 26, Alanine Aminotransferase (ALT/SGPT) 27, Alkaline Phosphatase 82, Total Protein 7.5, Albumin 4.0 11/09/21 07:52: Assessment/Plan Assessment/Plan Assessment/Plan diverticulitis/colitis lower abdominal pain nausea without emesis pain control iv fluids clear liquids continue abx would consider outpatient colonoscopy in 8 weeks after symptoms resolve conservative measures NESTOR VIEYRA DO November 09, 2021 08:02
[2021-11-09 08:03] LABS: HEMATOCRIT 34 % (35-52); HEMOGLOBIN 11.2 g/dL (11.5-16.0); MEAN CORPUSCULAR HEMOGLOBIN 30 pg (25-34); MEAN CORPUSCULAR HGB CONC 33 g/dL (32-36); MEAN CORPUSCULAR VOLUME 92 fL (80-99); MEAN PLATELET VOLUME 10.1 fL (9.0-12.2); PLATELET COUNT 184 10^3/uL (130-400); WHITE BLOOD COUNT 9.3 10^3/uL (4.3-11.0)
[2021-11-09 08:08] LABS: POTASSIUM 3.1 MMOL/L (3.6-5.0)
[2021-11-09 08:09] LABS: CALCIUM 8.6 MG/DL (8.5-10.1)
[2021-11-09 08:13] LABS: CREATININE SERUM 1.15 MG/DL (0.60-1.30)
[2021-11-09] MEDS ORDERED: ASCO500T7 PO (08:53)
[2021-11-09] MEDS ORDERED: ACHD5005 PO (08:53)
[2021-11-09] MEDS ORDERED: AMOX1TAB12 PO (08:53)
[2021-11-09] MEDS ORDERED: ACET-575 PO (08:53)
[2021-11-09] MEDS ORDERED: HYLANDS LEG CRAMP PM SL (08:53)
[2021-11-09] MEDS: HYDROcodone/APAP 5 MG/325 MG (LORTAB) TAB PO PRN ×2 (10:18→20:45)
[2021-11-09] MEDS ORDERED: MILK OF MAGNESIA 400 MG/5 ML 30 ML UDC PO PRN (12:00)
[2021-11-09] MEDS ORDERED: ANTACID SUSP 30 ML UDC (MYLANTA) PO PRN (12:00)
[2021-11-09] MEDS ORDERED: MELATONIN 3 MG TABLET PO PRN (12:00)
[2021-11-09] MEDS ORDERED: guaiFENesin/DM (ROBITUSSIN DM) 10 ML UDC PO PRN (12:00)
[2021-11-09] MEDS ORDERED: BENZONATATE 100 MG (TESSALON) CAPSULE PO PRN (12:00)
[2021-11-09] MEDS: POTASSIUM CL 10MEQ/50ML IVPB 50 ML IV SCH ×2 (12:07→13:18)
--- NOTE | 2021-11-09 12:07 | Progress Note - Hospitalist ---
Subjective HPI/CC On Admission Date Seen by Provider: November 09, 2021 Returns reporting that she is not feeling any better. Her lower abdominal pain is now radiating up into the right quadrant and she also has some pain radiating up into the right shoulder. It is worse with movement. She has had some mild nausea without vomiting. She reports no burning or dysuria like she had with previous UTI that was complicated by sepsis that resulted in hospitalization. She has had no diarrhea or constipation is keeping liquids down with very poor appetite. She was started on Augmentin 3 days ago which she has been taking. She has had several temperatures in the 100.4 range denying rigors. She denies constipation or diarrhea.Symptom have been present for roughly 10 days. Subjective/Events-last exam Patient reports still having abdominal pain. She feels about the same as yesterday but much better than last week. We discussed her CT findings and she was not surprised she had diverticulitis again as it felt similar to her last ep isode. Objective Exam Vital Signs Vital Signs Date Time Temp Pulse Resp B/P (MAP) Pulse Ox O2 Delivery O2 Flow Rate FiO2 11/09/21 08:00 37.1 100 20 152/83 (106) 96 Nasal Cannula 2.00 Capillary Refill : General Appearance: No Apparent Distress, WD/WN Respiratory: Lungs Clear, No Respiratory Distress Cardiovascular: Regular Rate, Rhythm, No Murmur Gastrointestinal: No Distended, No Guarding; Tenderness (mild and diffuse) Neurologic/Psychiatric: Alert, Oriented x3 Results/Procedures Lab Laboratory Tests 11/08/21 16:35 11/09/21 07:52 Patient resulted labs reviewed. Assessment/Plan Assessment and Plan Assess & Plan/Chief Complaint Diverticulitis ?colitis Continue on IV abx Continue pain medications Add levsin for cramping abd pain Surgery consulted, appreciate recs Will likely need outpatient colonoscopy when improved Post covid cough States chronic cough since COVID in July 2020 Add tessalon and robitussin as cough make abd pain worse HTN BP trending up, resume home meds Hypothyroidism Continue synthroid DVT ppx: MP Contreras MD November 09, 2021 12:07
[2021-11-09] MEDS ORDERED: NON-FORMULARY MEDICATION 1 EA EA (Melatonin 10 MG) PO PRN (12:15)
[2021-11-09] MEDS: ENOXAPARIN 40 MG/0.4 ML (LOVENOX) SYR SQ SCH (13:37)
[2021-11-09] MEDS: HYOSCYAMINE 0.125 MG (LEVSIN) TAB PO PRN (13:37)
[2021-11-09 16:00] VITALS: BP 113/57
[2021-11-09 20:10] VITALS: BP 134/60
[2021-11-09] MEDS: CYCLOBENZAPRINE 10 MG (FLEXERIL) TAB PO SCH (20:44)
[2021-11-09] MEDS: SIMvastatin 20 MG (ZOCOR) TAB PO SCH (20:44)
[2021-11-09] MEDS ORDERED: RX-CYCLOBENZAPRINE 10 MG (FLEXERIL) TAB PPK#3 PO SCH (21:00)
[2021-11-09] MEDS: MELATONIN 10 MG TABLET PO PRN (21:43)
[2021-11-09 23:50] VITALS: BP 107/67
[2021-11-10] MEDS: HYOSCYAMINE 0.125 MG (LEVSIN) TAB PO PRN (04:03)
[2021-11-10 04:17] VITALS: BP 113/70
[2021-11-10] MEDS: LEVOTHYROXINE 50 MCG (LEVOTHROID) TAB PO SCH (05:23)
[2021-11-10] MEDS: PIPERACILLIN SODIUM/TAZOBACTAM 4.5 GM in NS (IVPB) 100 ML IV SCH ×3 (05:24→21:10)
[2021-11-10 05:31] LABS: HEMATOCRIT 32 % (35-52); HEMOGLOBIN 10.2 g/dL (11.5-16.0); MEAN CORPUSCULAR HEMOGLOBIN 30 pg (25-34); MEAN CORPUSCULAR HGB CONC 32 g/dL (32-36); MEAN CORPUSCULAR VOLUME 93 fL (80-99); MEAN PLATELET VOLUME 9.7 fL (9.0-12.2); PLATELET COUNT 142 10^3/uL (130-400); WHITE BLOOD COUNT 5.6 10^3/uL (4.3-11.0)
[2021-11-10 05:42] LABS: CALCIUM 8.4 MG/DL (8.5-10.1)
[2021-11-10 05:47] LABS: CREATININE SERUM 1.06 MG/DL (0.60-1.30)
[2021-11-10 07:42] VITALS: BP 118/66
[2021-11-10] MEDS: PANTOPRAZOLE 20 MG TABLET (PROTONIX) PO SCH (08:17)
[2021-11-10] MEDS: LACTATED RINGERS 1,000 ML IV SCH ×2 (08:17→21:56)
[2021-11-10] MEDS: HYDROcodone/APAP 5 MG/325 MG (LORTAB) TAB PO PRN ×2 (08:20→17:36)
[2021-11-10] MEDS ORDERED: OMEPRAZOLE 20 MG (PriLOSEC) CAP NON-FORMULARY PO SCH (09:00)
[2021-11-10] MEDS ORDERED: POTASSIUM CL 10MEQ/50ML IVPB 50 ML IV SCH (09:00)
--- NOTE | 2021-11-10 09:06 | Progress Note - Surgery ---
Subjective Date Seen by a Provider: November 10, 2021 Time Seen by a Provider: 09:02 Subjective/Events-last exam Pain in the lower abdomen slightly better. -10/17. Tolerating clears. + bowel function denies n/v fever sweats chills shortness of breath or chest pain at this time. Objective Exam Vital Signs Date Time Temp Pulse Resp B/P (MAP) Pulse Ox O2 Delivery O2 Flow Rate FiO2 11/10/21 07:42 36.9 81 16 118/66 (83) 95 Nasal Cannula 2.00 11/10/21 04:17 37.4 80 22 113/70 (84) 100 Nasal Cannula 2.00 11/09/21 23:50 36.7 73 22 107/67 (80) 99 Nasal Cannula 2.00 11/09/21 20:10 36.9 98 20 134/60 (84) 97 Nasal Cannula 2.00 11/09/21 20:00 Room Air 11/09/21 16:00 37.5 93 18 113/57 (75) 98 Nasal Cannula 2.00 11/09/21 12:00 36.6 I & O 11/10/21 07:00 Intake Total 4760 ml Balance 4760 ml Capillary Refill : General Appearance: No Apparent Distress, WD/WN HEENT: PERRL/EOMI Respiratory: Chest Non Tender, No Accessory Muscle Use, No Respiratory Distress Cardiovascular: Regular Rate, Rhythm, No JVD Gastrointestinal: soft; No guarding, No rebound; tenderness (lower abdomen) Extremity: Normal Inspection, Normal Range of Motion, Non Tender, No Calf Tenderness, No Pedal Edema Neurologic/Psychiatric: Alert, Oriented x3 Skin: Normal Color, Warm/Dry Lymphatic: No Adenopathy Results Lab Laboratory Tests 11/10/21 05:20: White Blood Count 5.6, Red Blood Count 3.43L, Hemoglobin 10.2L, Hematocrit 32L, Mean Corpuscular Volume 93, Mean Corpuscular Hemoglobin 30, Mean Corpuscular Hemoglobin Concent 32, Red Cell Distribution Width 13.9, Platelet Count 142, Mean Platelet Volume 9.7, Sodium Level 137, Potassium Level 3.0L, Chloride Level 98, Carbon Dioxide Level 26, Anion Gap 13, Blood Urea Nitrogen 16, Creatinine 1.06, Estimat Glomerular Filtration Rate 53, BUN/Creatinine Ratio 15, Glucose Le slim 81, Calcium Level 8.4L Assessment/Plan Assessment/Plan Assessment/Plan diverticulitis/colitis lower abdominal pain nausea without emesis hypokalemia pain control replace k iv fluids clear liquids advance as pain resolves continue abx would consider outpatient colonoscopy in 8 weeks after symptoms resolve conservative measures NESTOR VIEYRA DO November 10, 2021 09:06
[2021-11-10] MEDS: POTASSIUM CL 10MEQ/50ML IVPB 50 ML IV SCH ×3 (09:39→13:13)
--- NOTE | 2021-11-10 09:49 | Progress Note - Hospitalist ---
Subjective HPI/CC On Admission Date Seen by Provider: November 10, 2021 Returns reporting that she is not feeling any better. Her lower abdominal pain is now radiating up into the right quadrant and she also has some pain radiating up into the right shoulder. It is worse with movement. She has had some mild nausea without vomiting. She reports no burning or dysuria like she had with previous UTI that was complicated by sepsis that resulted in hospitalization. She has had no diarrhea or constipation is keeping liquids down with very poor appetite. She was started on Augmentin 3 days ago which she has been taking. She has had several temperatures in the 100.4 range denying rigors. She denies constipation or diarrhea.Symptom have been present for roughly 10 days. Subjective/Events-last exam Pt reports doing ok but still having pain. Discussed that this takes time to resolve. She also complains of loose stools. Would like to advance diet though. She also asks about a tumor that her sister has that she is unsure of the name of and is worried she has it. Objective Exam Vital Signs Vital Signs Date Time Temp Pulse Resp B/P (MAP) Pulse Ox O2 Delivery O2 Flow Rate FiO2 11/10/21 07:42 36.9 81 16 118/66 (83) 95 Nasal Cannula 2.00 Capillary Refill : General Appearance: No Apparent Distress, WD/WN Respiratory: Lungs Clear, No Respiratory Distress Cardiovascular: Regular Rate, Rhythm, No Murmur Gastrointestinal: Normal Bowel Sounds, Non Tender, Soft Neurologic/Psychiatric: Alert, Oriented x3 Results/Procedures Lab Laboratory Tests 11/10/21 05:20 Patient resulted labs reviewed. Assessment/Plan Assessment and Plan Assess & Plan/Chief Complaint Diverticulitis ?colitis Continue on IV abx Continue pain medications levsin for cramping abd pain Surgery consulted, appreciate recs Will likely need outpatient colonoscopy when improved Check c diff if another loose stool Post covid cough States chronic cough since COVID in July 2020 Continue tessalon and robitussin as cough make abd pain worse HTN BP trending stable Hypothyroidism Continue synthroid Hypokalemia Replace today, trend DVT ppx: MP Contreras MD November 10, 2021 09:49
[2021-11-10 12:00] VITALS: BP 117/58
[2021-11-10] MEDS: ENOXAPARIN 40 MG/0.4 ML (LOVENOX) SYR SQ SCH (13:13)
[2021-11-10 16:00] VITALS: BP 108/49
--- NOTE | 2021-11-10 17:20 | Diagnostic Imaging Report ---
EXAM: US VENOUS LOWER EXT LT. INDICATION: Left lower extremity swelling. COMPARISON: None. TECHNIQUE: Duplex, grayscale, and color-flow imaging of the left lower extremity venous system was performed FINDINGS: The left common femoral vein, superficial femoral vein, profunda femoris, and popliteal veins are normal. These vessels show normal compressibility, color flow, and Doppler augmentation. The deep calf veins demonstrate no distinct intraluminal thrombus where seen. IMPRESSION: No evidence of deep venous thrombosis in the left lower extremity. Dictated by: Dictated on workstation # [id number]
[2021-11-10 20:00] VITALS: BP 117/66
[2021-11-10] MEDS: CYCLOBENZAPRINE 10 MG (FLEXERIL) TAB PO SCH (21:06)
[2021-11-10] MEDS: SIMvastatin 20 MG (ZOCOR) TAB PO SCH (21:06)
[2021-11-10] MEDS: MELATONIN 10 MG TABLET PO PRN (22:37)
[2021-11-11 00:07] VITALS: BP 118/74
[2021-11-11 04:02] VITALS: BP 106/70
[2021-11-11] MEDS: LEVOTHYROXINE 50 MCG (LEVOTHROID) TAB PO SCH (05:39)
[2021-11-11] MEDS: HYDROcodone/APAP 5 MG/325 MG (LORTAB) TAB PO PRN (05:39)
[2021-11-11] MEDS: PIPERACILLIN SODIUM/TAZOBACTAM 4.5 GM in NS (IVPB) 100 ML IV SCH (05:39)
[2021-11-11 08:06] VITALS: BP 116/60
[2021-11-11 08:34] LABS: POTASSIUM 3.2 MMOL/L (3.6-5.0)
[2021-11-11 08:35] LABS: CALCIUM 8.7 MG/DL (8.5-10.1)
[2021-11-11 08:40] LABS: CREATININE SERUM 1.09 MG/DL (0.60-1.30)
[2021-11-11] MEDS: PANTOPRAZOLE 20 MG TABLET (PROTONIX) PO SCH (08:54)
[2021-11-11] MEDS: LACTATED RINGERS 1,000 ML IV SCH (11:19)
[2021-11-11] MEDS: ENOXAPARIN 40 MG/0.4 ML (LOVENOX) SYR SQ SCH (11:28)
--- NOTE | 2021-11-11 12:30 | Progress Note - Surgery ---
Subjective Date Seen by a Provider: November 11, 2021 Time Seen by a Provider: 12:28 Subjective/Events-last exam patient feeling better. having bowel function. tolerating diet. no si gnificant abdominal pain. denies any nausea, vomiting, fever sweats chills shortness of breath or chest pain. Objective Exam Vital Signs Date Time Temp Pulse Resp B/P (MAP) Pulse Ox O2 Delivery O2 Flow Rate FiO2 11/11/21 11:44 Room Air 11/11/21 08:50 95 Nasal Cannula 2.00 11/11/21 08:06 36.2 81 18 116/60 (78) 95 Nasal Cannula 2.00 11/11/21 04:02 36.6 74 18 106/70 (82) 95 Nasal Cannula 2.00 11/11/21 00:07 36.5 86 18 118/74 (89) 94 Nasal Cannula 2.00 11/10/21 20:00 Room Air 11/10/21 20:00 36.6 97 16 117/66 (83) 94 Nasal Cannula 2.00 11/10/21 16:00 37.0 79 18 108/49 (68) 100 Nasal Cannula 2.00 I & O 11/11/21 06:59 Intake Total 2080 ml Balance 2080 ml Capillary Refill : General Appearance: No Apparent Distress, WD/WN HEENT: PERRL/EOMI, Normal ENT Inspection Neck: Normal Inspection, Non Tender Respiratory: Chest Non Tender, No Accessory Muscle Use, No Respiratory Distress Cardiovascular: Regular Rate, Rhythm, No JVD Gastrointestinal: non tender, soft; No guarding, No rebound Extremity: Normal Inspection, Non Tender, No Calf Tenderness, No Pedal Edema Neurologic/Psychiatric: Alert, Oriented x3 Skin: Normal Color, Warm/Dry Lymphatic: No Adenopathy Results Lab Laboratory Tests 11/11/21 08:15: Sodium Level 139, Potassium Level 3.2L, Chloride Level 97L, Carbon Dioxide Level 30, Anion Gap 12, Blood Urea Nitrogen 10, Creatinine 1.09, Estimat Glomerular Filtration Rate 52, BUN/Creatinine Ratio 9, Glucose Level 97, Calcium Level 8.7, Magnesium Level 2.0 Assessment/Plan Assessment/Plan Assessment/Plan diverticulitis/colitis lower abdominal pain nausea without emesis hypokalemia Diet as tolerates would consider outpatient colonoscopy in 8 weeks after symptoms resolve conservative measures ok with mn home from surgical standpoint NESTOR VIEYRA DO November 11, 2021 12:30
--- NOTE | 2021-11-11 12:41 | Discharge Inst-Simple/Standard ---
Discharge Inst-Standard Patient Instructions/Follow Up Plan of Care/Instructions/FU: Please continue to take your medications as written. Please follow up with Dr Yost and Dr Walker as scheduled. Activity as Tolerated: Yes Discharge Diet: Semi-Solid Diet (bland, and advance as tolerated over the weekend) Return to The Hospital For: Worsening pain, fever, inability to keep orals down, if you feel you are getting worse. MP DC MD November 11, 2021 12:41
[2021-11-11 12:49] VITALS: BP 129/75
== END 2021-11-11 13:36 | disposition home or self-care (01) | DRG 392 ==
LOC: 4TH 15:44
PROVIDERS: ADMIT Internal Medicine; ATTEND Internal Medicine
DX: K57.92 Diverticulitis of intestine, part unspecified, without perforation or abscess without bleeding (principal); R65.10 Systemic inflammatory response syndrome (SIRS) of non-infectious origin without acute organ dysfunction; K52.9 Noninfective gastroenteritis and colitis, unspecified; R05.9 Cough, unspecified; U09.9 Post COVID-19 condition, unspecified; I10 Essential (primary) hypertension; E03.9 Hypothyroidism, unspecified; E87.6 Hypokalemia; E78.00 Pure hypercholesterolemia, unspecified; E11.9 Type 2 diabetes mellitus without complications; K57.90 Diverticulosis of intestine, part unspecified, without perforation or abscess without bleeding
CPT/HCPCS: 36415; 74177; 80048; 80053; 83735; 85025; 85027; 94760

== ENCOUNTER 2021-12-08 05:35 | Outpatient (CLI) | payer MEDICARE ==
[~2021-12-08] VITALS: Ht 167.6 cm; Wt 86.2 kg
[~2021-12-08 05:35] MED LIST changes: +ACET-575 PO; +AMOX1TAB12 PO; +ASCO500T7 PO; +HYLANDS LEG CRAMP PM SL
== END 2021-12-08 08:29 | disposition home or self-care (01) ==
LOC: PREOP 05:35
PROVIDERS: ATTEND Surgery
DX: Z01.818 Encounter for other preprocedural examination (principal)

== ENCOUNTER 2021-12-21 10:56 | Day surgery (SDC) | payer MEDICARE ==
[~2021-12-21] VITALS: Ht 168 cm; Wt 86.2 kg
[2021-12-21] MEDS ORDERED: LACTATED RINGERS 1,000 ML IV STA (10:59)
[2021-12-21] MEDS ORDERED: HURRICAINE EXT TUBE (BENZOCAINE) XX PRN (11:00)
[2021-12-21 11:30] VITALS: BP 132/73
--- NOTE | 2021-12-21 11:38 | Progress Note-Pre Operative ---
Pre-Operative Progress Note H&P Reviewed The H&P was reviewed, patient examined and no changes noted. Date Seen by Provider: Dec 21, 2021 Time Seen by Provider: 11:38 Date H&P Reviewed: Dec 21, 2021 Time H&P Reviewed: 11:38 Pre-Operative Diagnosis: hx diverticulitis, gerd NESTOR VIEYRA DO Dec 21, 2021 11:38
--- NOTE | 2021-12-21 11:59 | Anesthesia-General Post-Op ---
MAC Patient Condition Mental Status/LOC: Same as Preop Cardiovascular: Satisfactory Nausea/Vomiting: Absent Respiratory: Satisfactory Pain: Controlled Complications: Absent Post Op Complications Complications None Follow Up Care/Instructions Patient Instructions None needed. Anesthesiology Discharge Order Discharge Order Patient is doing well, no complaints, stable vital signs, no apparent adverse anesthesia problems. No complications reported per nursing. RICH CAMPUZANO CRNA Dec 21, 2021 11:59
[2021-12-21] MEDS ORDERED: PROPOFOL INJECTION 50 ML IV ONE ×2 (12:55→13:33)
--- NOTE | 2021-12-21 13:49 | Progress Note-Post Operative ---
Post-Operative Progess Note Surgeon (s)/Cotton Presser (s) Surgeon NESTOR VIEYRA DO Cotton Presser: na Pre-Operative Diagnosis hx diverticulitis, gerd Post-Operative Diagnosis diverticulosis, rectal polyp, small hiatal hernia, gastritis Procedure & Operative Findings Date of Procedure 12/21/21 Procedure Performed/Findings egd c biopsies, colonoscopy c hot bx polypectomy Anesthesia Type per lead cargoman Estimated Blood Loss Estimated blood loss (mL): none Specimens/Packing Specimens Removed antrum, ge, rectal polyp NESTOR VIEYRA DO Dec 21, 2021 13:49
[2021-12-21 13:50] VITALS: BP 92/50
--- NOTE | 2021-12-21 13:51 | Discharge Inst-Simple/Standard ---
Discharge Inst-Standard Patient Instructions/Follow Up Plan of Care/Instructions/FU: 2 weeks Denise Activity as Tolerated: Yes Discharge Diet: Regular Diet (high fiber) NESTOR VIEYRA DO Dec 21, 2021 13:51
[2021-12-21 13:55] VITALS: BP 93/50
[2021-12-21 14:00] VITALS: BP 131/60
[2021-12-21 14:35] VITALS: BP 136/59
--- NOTE | 2021-12-21 23:59 | OPERATIVE REPORT ---
DATE OF SERVICE: 12/21/2021 PREOPERATIVE DIAGNOSIS: History of diverticulitis, gastroesophageal reflux disease. POSTOPERATIVE DIAGNOSES: Diverticulosis, rectal polyp, slight gastritis, hiatal hernia. PROCEDURE: EGD with biopsies, colonoscopy with hot biopsy polypectomy x1. SURGEON: Nestor Walker DO ANESTHESIA: Per DIETARY SUPERVISOR. ESTIMATED BLOOD LOSS: None. COMPLICATIONS: None. INDICATIONS: The patient is a 81-year-old female with recent history of diverticulitis. She also has some GERD symptoms. She understands risks and benefits of procedure and wishes to proceed. Consent was signed in the chart. DESCRIPTION OF PROCEDURE: The patient was taken to endoscopy suite, placed in left lateral recumbent position. Timeout was performed. Scope was inserted in mouth, down the esophagus, stomach and into the duodenum without difficulty. There were no polyps, masses or ulcerations within the duodenum. Scope was slowly retracted back into the stomach where it was further insufflated. Erythematous changes throughout the stomach. Biopsy of the antrum was obtained. Scope was retroflexed noting a small hiatal hernia. Scope was then returned to its normal position, slowly withdrawn to distal esophagus. Biopsy of the GE junction was obtained. No polyps, masses or ulcerations. Scope was slowly retracted back until completely removed. Digital rectal exam was performed. No palpable polyps, masses or ulcerations. Scope was inserted in the rectum and advanced all the way to cecum with minimal difficulty. Prep was adequate. Scope was then slowly retracted back. No polyps, masses or ulcerations within the cecum, ascending, transverse, descending and sigmoid colon. Moderate amount of diverticulosis throughout the majority of the colon. Once in the rectum, scope was retroflexed noting no other pathology except for towards the proximal rectum, there was a polyp present, which hot biopsy polypectomy was performed. Scope was then slowly retracted back until completely removed. The patient tolerated the procedure well without any complications. She was taken to recovery room in stable condition. RECOMMENDATIONS: The patient recommended high fiber diet. Currently, on omeprazole. We will consider switching to Protonix if symptoms are controlled and depending upon pathology. The patient will need repeat colonoscopy on an as needed basis if benefits outweigh the risks. Job ID: [id number] DocumentID: [id number] Dictated Date: 12/21/2021 13:53:53 Supervisor Cell [employer] Date: 12/21/2021 23:57:51 Dictated By: NESTOR WALKER DO
== END 2021-12-21 14:55 | disposition home or self-care (01) ==
LOC: ENDO 10:56
PROVIDERS: ATTEND Surgery
DX: K63.5 Polyp of colon (principal); K31.89 Other diseases of stomach and duodenum; K21.00 Gastro-esophageal reflux disease with esophagitis, without bleeding; Z87.891 Personal history of nicotine dependence; K57.30 Diverticulosis of large intestine without perforation or abscess without bleeding; K62.1 Rectal polyp; K44.9 Diaphragmatic hernia without obstruction or gangrene

== ENCOUNTER → 2022-09-12 | Outpatient (CLI) | payer MEDICARE ==
[2022-09-12 13:49] LABS: BASOPHILS % (AUTO) 0 % (0-10); EOSINOPHILS # (AUTO) 0.6 10^3/uL (0.0-0.3); EOSINOPHILS % (AUTO) 6 % (0-10); HEMATOCRIT 40 % (35-52); HEMOGLOBIN 13.4 g/dL (11.5-16.0); LYMPHOCYTES % (AUTO) 21 % (12-44); MEAN CORPUSCULAR HEMOGLOBIN 30 pg (25-34); MEAN CORPUSCULAR HGB CONC 33 g/dL (32-36); MEAN CORPUSCULAR VOLUME 90 fL (80-99); MEAN PLATELET VOLUME 9.8 fL (9.0-12.2); MONOCYTES # (AUTO) 0.7 10^3/uL (0.0-1.0); MONOCYTES % (AUTO) 8 % (0-12); NEUTROPHILS # (AUTO) 6.2 10^3/uL (1.8-7.8); NEUTROPHILS % (AUTO) 65 % (42-75); PLATELET COUNT 231 10^3/uL (130-400); WHITE BLOOD COUNT 9.6 10^3/uL (4.3-11.0)
[2022-09-12 14:06] LABS: ALBUMIN 4.1 GM/DL (3.2-4.5); BILIRUBIN,TOTAL 0.7 MG/DL (0.1-1.0); CALCIUM 10.5 MG/DL (8.5-10.1); CREATININE SERUM 1.73 MG/DL (0.60-1.30); POTASSIUM 3.7 MMOL/L (3.6-5.0)
--- NOTE | 2022-09-12 14:32 | Diagnostic Imaging Report ---
EXAMINATION: CHEST PA/LAT (2 VIEW). INDICATION: Cough and fever. COMPARISON: 05/24/2021. FINDINGS: Left lower lobe heterogeneous opacities are predominantly linear. No pleural effusion or pneumothorax. Normal heart size and mediastinal contours. IMPRESSION: Left lower lobe heterogeneous opacities are most likely due to atelectasis; however, given patient's reported presentation, this may represent pneumonia or aspiration. Dictated by: Dictated on workstation # [id number]
== END ==
LOC: RAD 13:35
PROVIDERS: ATTEND Nurse Practitioner Family
DX: J98.4 Other disorders of lung (principal); J18.9 Pneumonia, unspecified organism; R50.9 Fever, unspecified
CPT/HCPCS: 36415; 71046; 80053; 85025

== ENCOUNTER 2022-09-30 13:29 | Outpatient (RCR) | payer MEDICARE ==
[~2022-09-30 13:29] MED LIST changes: -MELA1TAB20 PO; +MELA1TAB72 PO
[2022-10-03] MEDS ORDERED: OXYC1TAB15 PO (14:41)
== END 2022-10-07 | disposition home or self-care (01) ==
PROVIDERS: ATTEND Nurse Practitioner Family
DX: M54.2 Cervicalgia (principal); E11.9 Type 2 diabetes mellitus without complications; Z98.890 Other specified postprocedural states

== ENCOUNTER 2022-10-03 13:05 | Emergency (ER) | payer MEDICARE ==
[~2022-10-03] VITALS: Ht 167 cm; Wt 88.4 kg
[2022-10-03] MEDS ORDERED: morphine INJ 10 MG/ML 1ML (SYR OR VIAL) IVP STA (13:10)
--- NOTE | 2022-10-03 13:21 | ED Upper Extremity ---
General Chief Complaint: Trauma-Non Activation Stated Complaint: FALL | Nursing Triage Note: pt presents to ed via ems from home with complaint of r arm/shoulder pain aftr loosing her balance when walking and falling today. pt denies loc and hitting her head. Source: patient, EMS Exam Limitations: no limitations History of Present Illness Date Seen by Provider: Oct 03, 2022 Time Seen by Provider: 13:01 Initial Comments 82-year-old female presents via EMS from home where she sustained a mechanical fall. She states she simply lost her balance falling backward and catching herself on her right arm. She has severe pain in her right shoulder and lesser pain in her right elbow. She denies hitting her head or losing consciousness. She is not on any blood thinning medications. She denies any chest pain, abdominal pain, lower extremity pain. All other systems reviewed and negative except documented per HPI. Voice recognition software was used to help create this chart Allergies and Home Medications Allergies Coded Allergies: erythromycin base (Verified Allergy, Unknown, 03/30/21) Patient Home Medication List Home Medication List Reviewed: Yes Acetaminophen/Diphenhydramine (Acetaminophen Pm Caplet) 500 Mg-25 Mg Tablet, 2 EACH PO HS, (Reported) Entered as Reported by: TK ROBINS on 11/09/21852 Cyclobenzaprine HCl (Cyclobenzaprine HCl) 10 Mg Tablet, 10 MG PO HS, (Reported) Entered as Reported by: PEYMAN PASCAL on 03/30/212049 Glimepiride (Glimepiride) 2 Mg Tablet, 2 MG PO DAILY, (Reported) Entered as Reported by: PEYMAN PACSAL on 03/30/212049 Hydrochlorothiazide (Hydrochlorothiazide) 25 Mg Tablet, 25 MG PO DAILY, (Reported) Entered as Reported by: PEYMAN PASCAL on 03/30/212049 Hydrocodone/Acetaminophen (Hydrocodone-Acetamin 5-325 mg) 5 Mg-325 Mg Tablet, 1 EA PO Q4H PRN for PAIN-MODERATE (5-7), (Reported) Entered as Reported by: KT ROBINS on 11/09/21852 Levothyroxine Sodium (Levothyroxine Sodium) 50 Mcg Tablet, 50 MCG PO DAILY, (Reported) Entered as Reported by: PEYMAN PASCAL on 03/30/212049 Melatonin (Melatonin) 5 Mg Tablet, 10 MG PO HS PRN for SLEEP, (Reported) Entered as Reported by: KT ROBINS on 03/31/21 1003 Omeprazole (Omeprazole) 20 Mg Capsule.dr, 20 MG PO DAILY, (Reported) Entered as Reported by: PEYMAN PASCAL on 03/30/212049 Simvastatin (Simvastatin) 20 Mg Tablet, 20 MG PO HS, (Reported) Entered as Reported by: PEYMAN PASCAL on 03/30/212049 [Hylands Leg Cramp Pm] , 3 EA SL HS, (Reported) Entered as Reported by: KT ROBINS on 11/09/21 0853 Review of Systems Constitutional: see HPI Past Npndzgt-Vhthlo-Vtedkw Hx Patient Social History Tobacco Use?: No Substance use?: No Alcohol Use?: No Pt feels they are or have been: No Immunizations Up To Date Tetanus Booster (TDap): Unknown First/Initial COVID19 Vaccinat: JANUARY 2021 Second COVID19 Vaccination Allen: JANUARY 2021 Third COVID19 Vaccination Date: N/A Seasonal Allergies Seasonal Allergies: No Past Medical History Surgery/Hospitalization HX: eye, niesha, back, niddm, htn, hypothyoid, gerd, high cholesterol, diverticulosis. Surgeries: No (NECK) Appendectomy, Eye Surgery, Gallbladder Respiratory: Yes (COVID-28 July 2020) Cardiac: Yes High Cholesterol, Hypertension Neurological: No Reproductive Disorders: No Genitourinary: No Gastrointestinal: Yes Diverticulosis Musculoskeletal: No Endocrine: Yes Hypothyroidsim, Diabetes, Non-Insulin dep HEENT: No Cancer: No Psychosocial: No Integumentary: No Blood Disorders: No Family Medical History Reviewed Nursing Family Hx No Pertinent Family Hx daughter alive Physical Exam Vital Signs Vital Signs - First Documented Capillary Refill : Less Than 3 Seconds Height, Weight, BMI Height: '" Weight: lbs. oz. kg; 31.00 BMI Method: General Appearance: WD/WN, no apparent distress HEENT: normal ENT inspection, pharynx normal Neck: non-tender, full range of motion, supple, normal inspection Cardiovascular: regular rate, rhythm, no murmur Respiratory: chest non-tender, lungs clear, normal breath sounds, no respiratory distress, no accessory muscle use Gastrointestinal: normal bowel sounds, non tender, soft, no organomegaly, no pulsatile mass Shoulder: swelling (Swelling and bruising right anterior shoulder. There is no obvious deformity here. No clavicular tenderness. Axillary sensations intact. Neurovascular motor and sensory intact distally. There is a skin tear to the posterior right elbow. Some mild bony tenderness in this area without deformity. Neurovascular motor and sensory intact distally.) Wrist: Yes normal inspection, Yes non-tender, Yes no evidence of injury Hand: normal inspection, non-tender, no evidence of injury Neurologic/Tendon: normal sensation, normal motor functions, normal tendon functions Neurologic/Psychiatric: alert, oriented x 3 Skin: other (Skin tear as described above) Progress/Results/Core Measures Results/Orders My Orders Orders - MATTHEW NAGY DO Shoulder, Right, 3 Views (10/03/22 13:10) Elbow, Right, 3 Views (10/03/22 13:10) Morphine Injection (Morphine Injection (10/03/22 13:10) Hydromorphone Injection (Dilaudid Inject (10/03/22 14:30) Medications Given in ED Current Medications Medications Dose Ordered Sig/Becca Route Start Time Stop Time Status Last Admin Dose Admin Hydromorphone HCl 0.5 mg ONCE ONCE IV 10/03/22 14:30 10/03/22 14:31 DC 10/03/22 14:24 0.5 MG Vital Signs/I&O 10/03/22 10/03/22 13:09 13:09 Temp 35.6 35.6 Pulse 89 89 Resp 16 16 B/P (MAP) 126/57 (80) 134/68 (90) Pulse Ox 92 92 Blood Pressure Mean: 90 Departure Communication (Admissions) Patient is hemodynamically stable. She is neurovascular motor and sensory intact. She has a right proximal humerus fracture" splint is placed. Elbow x- rays are negative. I have independently reviewed elbow and shoulder imaging and agree with findings. She has no other obvious injuries. Pain is controlled with medications provided. She is currently on hydrocodone so I increased this to Percocet as she states she was having minimal result with this even for her chronic neck pain. She is referred to orthopedics, they requested Dr. Mehta to the name of Tyson and Jensen were both given to them as Jensen is on-call. Impression Primary Impression: Proximal humeral fracture Qualified Codes: S42.291A - Other displaced fracture of upper end of right humerus, initial encounter for closed fracture Additional Impression: Elbow pain, right Disposition: 01 HOME, SELF-CARE Condition: Stable Departure-Patient Inst. Referrals: CHAN RILEY MD (PCP) Primary Care Physician JONY BLISS MD, MICHAEL P MD Patient Instructions: Shoulder Fracture (DC) Add. Discharge Instructions: Take the pain medications as prescribed as needed. Do not drive or make important decisions while taking the medicine may make you drowsy. I recommend you also take stool softeners as it can cause constipation. Keep your splint on and dry. Follow-up with the orthopedic surgeon by calling to schedule an appointment. Two have been recommended for you. You are welcome to do some research and choose some every please if you do not wish to follow-up with one of them. Return to the emergency department for any severe concerns. Follow-up with your primary doctor for any nonemergent needs All discharge instructions reviewed with patient and/or family. Voiced under standing. Scripts Oxycodone HCl/Acetaminophen (Oxycodon-Acetaminophen 7.5-325) 7.5 Mg-325 Mg Tablet 1 EACH PO Q6H PRN for PAIN-MODERATE MDD 4 for 3 Days, #12 TAB Prov: MATTHEW NAGY DO 10/03/22 MATTHEW NAGY DO Oct 03, 2022 13:21
--- NOTE | 2022-10-03 14:12 | Diagnostic Imaging Report ---
ELBOW, RIGHT, 3 VIEWS INDICATION: Right elbow pain COMPARISON: None available. TECHNIQUE: 3 views of right elbow. FINDINGS: No acute fracture about the right elbow. No elbow joint effusion. Alignment is normal. Mild soft tissue swelling overlying the olecranon is likely due to contusion. IMPRESSION: No acute fracture about the right elbow. Dictated by: Dictated on workstation # [id number]
--- NOTE | 2022-10-03 14:13 | Diagnostic Imaging Report ---
SHOULDER, RIGHT, 3 VIEWS INDICATION: Right shoulder pain. COMPARISON: None available. TECHNIQUE: Three views of the right shoulder. FINDINGS: There is acute segmental-type fracture in the proximal humeral diaphysis. This is located just below the surgical neck of the humerus. There is mild lateral apex bowing of the fracture. The medial cortex is displaced 2 cm centrally. The fracture does not appear to involve the greater tuberosity or humeral head. IMPRESSION: Acute and mildly angulated segmental-type fracture in the proximal humeral diaphysis. Dictated by: Dictated on workstation # [id number]
[2022-10-03] MEDS ORDERED: HYDROmorphone 2 MG/ML VIAL (DILAUDID) IV ONE (14:30)
[2022-10-03] MEDS ORDERED: OXYC1TAB15 PO (14:41)
[2022-10-03 15:33] VITALS: BP 118/57
== END 2022-10-03 15:39 | disposition home or self-care (01) ==
LOC: EDUNIT# 13:05 → ER 13:07
DX: S42.291A Other displaced fracture of upper end of right humerus, initial encounter for closed fracture (principal); M25.521 Pain in right elbow; W18.30XA Fall on same level, unspecified, initial encounter; Y93.01 Activity, walking, marching and hiking
CPT/HCPCS: 29105; 73030; 73080

== ENCOUNTER 2022-11-12 15:17 | Emergency (ER) | payer MEDICARE ==
[~2022-11-12] VITALS: Ht 162 cm; Wt 87.0 kg
[~2022-11-12 15:17] MED LIST changes: +OXYC1TAB15 PO
[2022-11-12] MEDS ORDERED: RT-ALBUTEROL HFA 8.5 GM INHALER IH STA (15:42)
[2022-11-12] MEDS ORDERED: ONDANSETRON 4 MG/2 ML (SDV) Z0FRAN IVP ONE (15:45)
[2022-11-12] MEDS ORDERED: LACTATED RINGERS 1,000 ML IV ONE (15:45)
--- NOTE | 2022-11-12 16:09 | ED General ---
General Chief Complaint: Cough/Cold/Flu Symptoms Stated Complaint: NAUSEA/COUGH Nursing Triage Note: PT IS BROUGHT TO ED BY DAUGHTER POV FOR COUGH, NAUSEA, AND BODY SORENESS THAT STARTED TODAY. PT IS COUGHING IN LOBBY. PT WAS BROUGHT TO ROOM 10 VIA WC WITH DAUGHTER AT BEDSIDE. IN ROUTE PT VOMITED. PER DAUGHTER PT IS BEING TREATED WITH NITROFURANTOIN FOR KIDNEY INFECTION. HX OF SEPSIS. Source of Information: Patient, Family Exam Limitations: No Limitations History of Present Illness Date Seen by Provider: November 12, 2022 Time Seen by Provider: 15:23 Initial Comments This 82-year-old woman presents to the emergency room with primary complaint of cough and shortness of breath as well as nausea and vomiting. The cough and shortness of breath has been present for about 4 days. The vomiting started today. She has diffuse myalgias and generalized aching. She was recently prescribed Macrobid for urinary tract infection. She has had some falls recently and required surgery for a right arm fracture. She is presently in a sling. She is mildly tachycardic and tachypneic but afebrile. She is ambulatory. Patient complained of a heaviness in her chest after the coughing started. Allergies and Home Medications Allergies Coded Allergies: erythromycin base (Verified Allergy, Unknown, 03/30/21) Patient Home Medication List Home Medication List Reviewed: Yes Acetaminophen/Diphenhydramine (Acetaminophen Pm Caplet) 500 Mg-25 Mg Tablet, 2 EACH PO HS, (Reported) Entered as Reported by: KT ROBINS on 11/09/21852 Cyclobenzaprine HCl (Cyclobenzaprine HCl) 10 Mg Tablet, 10 MG PO HS, (Reported) Entered as Reported by: PEYMAN PASCAL on 03/30/212049 Glimepiride (Glimepiride) 2 Mg Tablet, 2 MG PO DAILY, (Reported) Entered as Reported by: PEYMAN PASCAL on 03/30/212049 Hydrochlorothiazide (Hydrochlorothiazide) 25 Mg Tablet, 25 MG PO DAILY, (Reported) Entered as Reported by: PEYMAN PASCAL on 03/30/212049 Hydrocodone/Acetaminophen (Hydrocodone-Acetamin 5-325 mg) 5 Mg-325 Mg Tablet, 1 EA PO Q4H PRN for PAIN-MODERATE (5-7), (Reported) Entered as Reported by: KT ROBINS on 11/09/21 0853 Levothyroxine Sodium (Levothyroxine Sodium) 50 Mcg Tablet, 50 MCG PO DAILY, (Reported) Entered as Reported by: PEYMAN PASCAL on 03/30/212049 Melatonin (Melatonin) 5 Mg Tablet, 10 MG PO HS PRN for SLEEP, (Reported) Entered as Reported by: KT ROBINS on 03/31/21 100 Omeprazole (Omeprazole) 20 Mg Capsule.dr, 20 MG PO DAILY, (Reported) Entered as Reported by: PEYMAN PASCAL on 03/30/212049 Ondansetron (Ondansetron Odt) 4 Mg Tab.rapdis, 4 MG SL Q4H PRN for NAUSEA/VOMITING Prescribed by: CHARLES TAVERAS on 11/12/221941 Oxycodone HCl/Acetaminophen (Oxycodon-Acetaminophen 7.5-325) 7.5 Mg-325 Mg Tablet, 1 EACH PO Q6H PRN for PAIN-MODERATE Prescribed by: MATTHEW NAGY MD on 10/03/22 1441 Simvastatin (Simvastatin) 20 Mg Tablet, 20 MG PO HS, (Reported) Entered as Reported by: PEYMAN PASCAL on 03/30/212049 [Hylands Leg Cramp Pm] , 3 EA SL HS, (Reported) Entered as Reported by: KT ROBINS on 11/09/21 08 Review of Systems Review of Systems Constitutional: no symptoms reported EENTM: other (Dry mouth) Respiratory: see HPI Cardiovascular: no symptoms reported Gastrointestinal: see HPI Genitourinary: see HPI : No Musculoskeletal: see HPI Skin: no symptoms reported Psychiatric/Neurological: No Symptoms Reported Hematologic/Lymphatic: No Symptoms Reported Immunological/Allergic: no symptoms reported Past Asngmat-Rgnxhg-Azxatb Hx Patient Social History Tobacco Use?: No Substance use?: No Alcohol Use?: No Pt feels they are or have been: No Immunizations Up To Date Tetanus Booster (TDap): Unknown First/Initial COVID19 Vaccinat: JANUARY 2021 Second COVID19 Vaccination Allen: JANUARY 2021 Third COVID19 Vaccination Date: N/A Seasonal Allergies Seasonal Allergies: No Past Medical History Surgery/Hospitalization HX: eye, niesha, back, niddm, htn, hypothyoid, gerd, high cholesterol, diverticulosis. Surgeries: Yes (Neck) Appendectomy, Eye Surgery, Gallbladder Respiratory: Yes (COVID-28 July 2020) Cardiac: Yes High Cholesterol, Hypertension Neurological: No Reproductive Disorders: No Genitourinary: No Gastrointestinal: Yes Diverticulosis Musculoskeletal: No Endocrine: Yes Hypothyroidsim, Diabetes, Non-Insulin dep HEENT: No Cancer: No Psychosocial: No Integumentary: No Blood Disorders: No Family Medical History No Pertinent Family Hx daughter alive Physical Exam Vital Signs Vital Signs - First Documented 11/12/22 15:33 Temp 36.7 Pulse 105 Resp 25 Pulse Ox 97 O2 Delivery Room Air Capillary Refill : Less Than 3 Seconds Height, Weight, BMI Height: '" Weight: lbs. oz. kg; 33.00 BMI Method: General Appearance: No Apparent Distress, WD/WN HEENT: Normal ENT Inspection, Other (Dry oropharynx) Respiratory: No Accessory Muscle Use, No Respiratory Distress, Crackles (Basilar crackles), Wheezing (Faint) Cardiovascular: Regular Rate, Rhythm, No Edema, No Murmur Gastrointestinal: Normal Bowel Sounds, Soft, Tenderness (Generalized diffuse tenderness) Extremity: Normal Inspection, No Pedal Edema, Other (Generalized diffuse tenderness) Neurologic/Psychiatric: Alert, Oriented x3, No Motor/Sensory Deficits, Normal Mood/Affect, shoe cobbler II-XII Norm as Tested Skin: Normal Color, Warm/Dry Progress/Results/Core Measures Suspected Sepsis SIRS Temperature: Pulse: 105 Respiratory Rate: 25 Laboratory Tests 11/12/22 16:15: White Blood Count 11.2H Blood Pressure / Mean: Laboratory Tests 11/12/22 16:15: Creatinine 1.56H, INR Comment 0.9, Platelet Count 200, Total Bilirubin 0.9 Results/Orders Lab Results Laboratory Tests Test 11/12/22 15:40 11/12/22 16:15 Range/Units Influenza Type A (RT-PCR) Not Detected Not Detecte Influenza Type B (RT-PCR) Not Detected Not Detecte SARS-CoV-2 RNA (RT-PCR) Not Detected Not Detecte White Blood Count 11.2 H 4.3-11.0 10^3/uL Red Blood Count 4.11 3.80-5.11 10^6/uL Hemoglobin 12.3 11.5-16.0 g/dL Hematocrit 39 35-52 % Mean Corpuscular Volume 94 80-99 fL Mean Corpuscular Hemoglobin 30 25-34 pg Mean Corpuscular Hemoglobin Concent 32 32-36 g/dL Red Cell Distribution Width 15.0 H 10.0-14.5 % Platelet Count 200 130-400 10^3/uL Mean Platelet Volume 10.8 9.0-12.2 fL Immature Granulocyte % (Auto) 0 % Neutrophils (%) (Auto) 93 H 42-75 % Lymphocytes (%) (Auto) 2 L 12-44 % Monocytes (%) (Auto) 3 0-12 % Eosinophils (%) (Auto) 2 0-10 % Basophils (%) (Auto) 0 0-10 % Neutrophils # (Auto) 10.4 H 1.8-7.8 10^3/uL Lymphocytes # (Auto) 0.2 L 1.0-4.0 10^3/uL Monocytes # (Auto) 0.3 0.0-1.0 10^3/uL Eosinophils # (Auto) 0.2 0.0-0.3 10^3/uL Basophils # (Auto) 0.0 0.0-0.1 10^3/uL Immature Granulocyte # (Auto) 0.0 0.0-0.1 10^3/uL Neutrophils % (Manual) 90 % Lymphocytes % (Manual) 2 % Monocytes % (Manual) 4 % Eosinophils % (Manual) 0 % Basophils % (Manual) 0 % Band Neutrophils 4 % Anisocytosis SLIGHT Prothrombin Time 12.9 12.2-14.7 SEC INR Comment 0.9 0.8-1.4 Activated Partial Thromboplast Time 26 24-35 SEC Sodium Level 143 135-145 MMOL/L Potassium Level 4.0 3.6-5.0 MMOL/L Chloride Level 99 98-107 MMOL/L Carbon Dioxide Level 26 21-32 MMOL/L Anion Gap 18 H 5-14 MMOL/L Blood Urea Nitrogen 41 H 7-18 MG/DL Creatinine 1.56 H 0.60-1.30 MG/DL Estimat Glomerular Filtration Rate 33 BUN/Creatinine Ratio 26 Glucose Level 134 H 70-105 MG/DL Calcium Level 9.6 8.5-10.1 MG/DL Corrected Calcium 9.4 8.5-10.1 MG/DL Magnesium Level 2.0 1.6-2.4 MG/DL Total Bilirubin 0.9 0.1-1.0 MG/DL Aspartate Amino Transf (AST/SGOT) 29 5-34 U/L Alanine Aminotransferase (ALT/SGPT) 13 0-55 U/L Alkaline Phosphatase 96 40-136 U/L Myoglobin 43.7 10.0-92.0 NG/ML Troponin I < 0.028 <0.028 NG/ML C-Reactive Protein High Sensitivity 3.28 H 0.00-0.50 MG/DL B-Type Natriuretic Peptide 37.0 <100.0 PG/ML Total Protein 7.6 6.4-8.2 GM/DL Albumin 4.2 3.2-4.5 GM/DL My Orders Orders - CHARLES COHEN MD Covid 19 Inhouse Test (11/12/22 15:23) Influenza A And B By Pcr (11/12/22 15:23) Albuterol Inhaler (Albuterol) (11/12/22 15:42) Bnp [place] (11/12/22 15:42) Hs C Reactive Protein (11/12/22 15:42) Cbc With Automated Diff (11/12/22 15:42) Magnesium (11/12/22 15:42) Chest 1 View, Ap/Pa Only (11/12/22 15:42) Ekg Tracing (11/12/22 15:42) Comprehensive Metabolic Panel (11/12/22 15:42) Myoglobin Serum (11/12/22 15:42) Protime With Inr (11/12/22 15:42) Partial Thromboplastin Time (11/12/22 15:42) Monitor-Rhythm Ecg Trace Only (11/12/22 15:42) Lipid Panel (11/13/22 06:00) Ed Iv/Invasive Line Start (11/12/22 15:42) Troponin I [place] (11/12/22 15:42) Ondansetron Injection (Zofran Injectio (11/12/22 15:45) Lactated Ringers (Lr 1000 Ml Iv Solution (11/12/22 15:45) Manual Differential (11/12/22 16:15) Ceftriaxone Iv/Im (Rocephin Iv/Im) (11/12/22 18:20) Medications Given in ED Current Medications Medications Dose Ordered Sig/Becca Route Start Time Stop Time Status Last Admin Dose Admin Lactated Ringer's 1,000 ml @ 0 mls/hr Q0M ONCE IV 11/12/22 15:45 11/12/22 15:46 DC 11/12/22 16:33 1,000 MLS/HR Ondansetron HCl 4 mg ONCE ONCE IVP 11/12/22 15:45 11/12/22 15:46 DC 11/12/22 16:32 4 MG Vital Signs/I&O 11/12/22 15:33 Temp 36.7 Pulse 105 Resp 25 B/P (MAP) Pulse Ox 97 O2 Delivery Room Air Capillary Refill : Less Than 3 Seconds Progress Note #1: Time: 16:43 Progress Note Patient and daughter were interviewed and patient was examined. Exam was relatively unremarkable except for few crackles in the bases of her lungs and faint wheezing. Oropharynx is dry. IV fluids are being initiated. Albuterol inhaler is being provided for the wheezes. Influenza and COVID-19 swabs were negative. Zofran was administered for nausea and vomiting. Chest x-ray read is pending. Progress Note #2: Progress Note Labs were reviewed and interpreted in their entirety by me. Creatinine was elevated at 1.56 which is above her historical baseline. IV fluids were initiated to treat renal impairment and probable hypovolemia. CBC, CMP, CRP, BNP, and viral swabs were otherwise relatively unremarkable. Wheezing improved with albuterol inhaler. Patient felt improved after IV hydration. Patient was advised to discontinue Macrobid as her GFR is not high enough for Macrobid to be effective. And lieu of Macrobid, a dose of Rocephin was administered. She has an appointment with her primary care provider on Monday. At that time she can review culture results and her antibiotic selection can be based on the culture being processed in the clinic. Patient was ultimately discharged home in improved condition. Chest x-ray was unremarkable EKG demonstrated chronic left bundle branch block with no significant changes from prior by my interpretation. ECG Initial ECG Impression Date: November 12, 2022 Initial ECG Impression Time: 16:37 Initial ECG Rate: 97 Comment Sinus rhythm with chronic left bundle branch block. This was compared with prior with no significant change. Left axis deviation. No significant interval change. Diagnostic Imaging Diagonstic Imaging: Xray Plain Films/CT/US/NM/MRI: chest Comments NAME: JOHNJAQUELINE HARPER Ahmet [facility] REC#: [id number] PT STATUS: REG ER : 1940 PHYSICIAN: CHARLES COHEN MD ADMIT DATE: 11/12/22/ER Signed Date of Exam:11/12/22 CHEST 1 VIEW, AP/PA ONLY EXAMINATION: Chest 1 view. HISTORY: Chest pain. Cough. COMPARISON: 09/12/2022. FINDINGS: There is stable elevation of the right hemidiaphragm. No focal consolidation is seen. No large pleural effusion or pneumothorax is seen. The cardiomediastinal silhouette is normal in size and contour. No acute osseous abnormality is seen. IMPRESSION: No acute pleuroparenchymal process. Dictated by: Dictated on workstation # [id number] Dict: 11/12/221641 Trans: 11/12/221647 PJE [id number] Interpreted by: ROSALIE COX DO Electronically signed by: ROSALIE COX DO 11/12/221647 Departure Impression Primary Impression: Nausea and vomiting Qualified Codes: R11.2 - Nausea with vomiting, unspecified Additional Impressions: Urinary tract infection Qualified Codes: N39.0 - Urinary tract infection, site not specified Atypical chest pain Renal insufficiency Disposition: HOME, SELF-CARE Condition: Improved Departure-Patient Inst. Decision time for Depature: 18:25 Referrals: CHAN RILEY MD (PCP/Family) Primary Care Physician Patient Instructions: Nausea and Vomiting, Adult, Urinary Tract Infection, Adult ED Add. Discharge Instructions: Drink plenty of clear liquids to stay well-hydrated. Gradually advance your diet with small quantities of bland food as tolerated. Take Zofran (ondansetron) as prescribed for nausea and vomiting. You may use your albuterol inhaler for shortness of breath or wheezing. Follow-up with your primary care provider by phone on Monday to review urine culture results. You received a dose of Rocephin in the emergency room which is a 24-hour antibiotic. You will need to have a prescription provided for you on Monday based on culture results. Do not use the Macrobid (nitrofurantoin) you were prescribed previously as your kidney function is not good enough for use of Macrobid. Return to the ER if you have worsening symptoms despite following these instructions. Keep your appointment with your primary care provider on Monday. All discharge instructions reviewed with patient and/or family. Voiced understanding. Scripts Ondansetron (Ondansetron Odt) 4 Mg Tab.rapdis 4 MG SL Q4H PRN for NAUSEA/VOMITING, #10 TAB Prov: CHARLES COHEN MD 11/12/22 Copy Copies To 1: CHAN RILEY MD, JOSHUA T MD November 12, 2022 16:09
[2022-11-12 16:33] LABS: BASOPHILS % (AUTO) 0 % (0-10); EOSINOPHILS # (AUTO) 0.2 10^3/uL (0.0-0.3); EOSINOPHILS % (AUTO) 2 % (0-10); HEMATOCRIT 39 % (35-52); HEMOGLOBIN 12.3 g/dL (11.5-16.0); LYMPHOCYTES # (AUTO) 0.2 10^3/uL (1.0-4.0); LYMPHOCYTES % (AUTO) 2 % (12-44); MEAN CORPUSCULAR HEMOGLOBIN 30 pg (25-34); MEAN CORPUSCULAR HGB CONC 32 g/dL (32-36); MEAN CORPUSCULAR VOLUME 94 fL (80-99); MEAN PLATELET VOLUME 10.8 fL (9.0-12.2); MONOCYTES # (AUTO) 0.3 10^3/uL (0.0-1.0); MONOCYTES % (AUTO) 3 % (0-12); NEUTROPHILS # (AUTO) 10.4 10^3/uL (1.8-7.8); NEUTROPHILS % (AUTO) 93 % (42-75); PLATELET COUNT 200 10^3/uL (130-400); WHITE BLOOD COUNT 11.2 10^3/uL (4.3-11.0)
[2022-11-12 16:46] LABS: BAND NEUTROPHILS 4 %; BASOPHILS % (MANUAL) 0 %; EOSINOPHILS % (MANUAL) 0 %; LYMPHOCYTES % (MANUAL) 2 %; MONOCYTES % (MANUAL) 4 %; NEUTROPHILS % (MANUAL) 90 %
[2022-11-12 16:47] LABS: ANISOCYTOSIS SLIGHT
--- NOTE | 2022-11-12 16:47 | Diagnostic Imaging Report ---
EXAMINATION: Chest 1 view. HISTORY: Chest pain. Cough. COMPARISON: 09/12/2022. FINDINGS: There is stable elevation of the right hemidiaphragm. No focal consolidation is seen. No large pleural effusion or pneumothorax is seen. The cardiomediastinal silhouette is normal in size and contour. No acute osseous abnormality is seen. IMPRESSION: No acute pleuroparenchymal process. Dictated by: Dictated on workstation # [id number]
[2022-11-12 16:48] LABS: ALBUMIN 4.2 GM/DL (3.2-4.5); INR 0.9 (0.8-1.4); PROTHROMBIN TIME PATIENT 12.9 SEC (12.2-14.7)
[2022-11-12 16:49] LABS: CALCIUM 9.6 MG/DL (8.5-10.1)
[2022-11-12 16:51] LABS: TOTAL PROTEIN 7.6 GM/DL (6.4-8.2)
[2022-11-12 16:53] LABS: BILIRUBIN,TOTAL 0.9 MG/DL (0.1-1.0)
[2022-11-12 16:54] LABS: CREATININE SERUM 1.56 MG/DL (0.60-1.30)
[2022-11-12] MEDS ORDERED: cefTRIAXone IV/IM 1,000 MG in NS (IVPB) 50 ML IV STA (18:20)
[2022-11-12] MEDS ORDERED: ONDA4TAB11 SL (19:42)
[2022-11-12] MEDS ORDERED: RT-ALBUTEROL/IPRATROPIUM 3 ML (DUONEB) VIAL ONE (20:14)
[2022-11-12] MEDS ORDERED: RT-ALBUTEROL/IPRATROPIUM 3 ML (DUONEB) VIAL INH ONE (20:15)
[2022-11-12 21:20] VITALS: BP 110/50
== END 2022-11-12 21:20 | disposition home or self-care (01) ==
LOC: EDUNIT# 15:17 → ER 15:20
DX: N39.0 Urinary tract infection, site not specified (principal); N28.9 Disorder of kidney and ureter, unspecified; R07.89 Other chest pain; R11.2 Nausea with vomiting, unspecified; Z86.16 Personal history of COVID-19; Z88.1 Allergy status to other antibiotic agents; Z20.822 Contact with and (suspected) exposure to COVID-19
CPT/HCPCS: 36415; 71045; 80053; 83735; 83874; 83880; 84484; 85007; 85027; 85610; 85730; 86141; 87636; 93005; 93041; 94640

== ENCOUNTER → 2022-12-07 | Outpatient (RCR) | payer MEDICARE ==
[~2022-12-07] MED LIST changes: +ONDA4TAB11 SL
== END | disposition home or self-care (01) ==
PROVIDERS: ATTEND Orthopaedic Surgery
DX: Z98.890 Other specified postprocedural states (principal)

== ENCOUNTER 2023-01-04 11:26 | Outpatient (RCR) | payer MEDICARE | END 2023-01-06 | disposition home or self-care (01) | PROVIDERS: ATTEND Orthopaedic Surgery | DX: Z98.890 Other specified postprocedural states (principal); E11.9 Type 2 diabetes mellitus without complications ==

== ENCOUNTER 2023-02-02 13:20 | Outpatient (RCR) | payer MEDICARE | END 2023-02-06 | disposition home or self-care (01) | PROVIDERS: ATTEND Orthopaedic Surgery | DX: M25.511 Pain in right shoulder (principal); E11.9 Type 2 diabetes mellitus without complications; Z98.890 Other specified postprocedural states ==

== ENCOUNTER → 2023-06-16 | Outpatient (CLI) | payer MEDICARE ==
--- NOTE | 2023-06-16 17:14 | Diagnostic Imaging Report ---
INDICATION: Shortness of breath and cough. Comparison is made with prior examination of 09/12/2022. FINDINGS: The heart size is normal. There is elevation of the right hemidiaphragm. There is no pleural effusion or pneumothorax. Mediastinum is unremarkable. IMPRESSION: No acute cardiopulmonary abnormality. Dictated by: Dictated on workstation # [id number]
== END ==
LOC: RAD 11:54
PROVIDERS: ATTEND Nurse Practitioner Family
DX: R06.02 Shortness of breath (principal); R05.9 Cough, unspecified
CPT/HCPCS: 71046